=== PATIENT | male | born 1970 | race Caucasian/White ===

== ENCOUNTER 2018-12-05 10:52 | Outpatient (CLI) ==
--- NOTE | 2018-12-05 12:32 | US ---
EXAM: ULTRASOUND LOWER EXTREMITY VENOUS DOPPLER EXAM HISTORY: Swelling and pain. FINDINGS: Bilateral lower extremity venous Doppler exam. Real time rose-scale, Doppler spectral june lysis and color-flow Doppler imaging performed. The veins targeted for evaluation include the common femoral, greater saphenous, profundus, femoral, popliteal, peroneal, anterior tibial and posterior t ibial. The evaluated veins demonstrated normal spontaneous flow and compression without evidence o f thrombosis. IMPRESSION: No venous thrombosis identified within the areas evaluated.
== END 2018-12-05 10:53 | disposition home or self-care (01) ==
LOC: RAD 10:52
PROVIDERS: ATTEND Family Medicine
DX: M79.605 Pain in left leg (principal); M79.604 Pain in right leg; M79.89 Other specified soft tissue disorders

== ENCOUNTER 2020-01-03 04:09 | Inpatient (IN) ==
[2020-01-03] MEDS ORDERED: SODIUM CHLORIDE 1,000 ML IV STA (04:52)
[2020-01-03] MEDS ORDERED: ZOFRAN 4 MG/2 ML IVP STA (04:52)
[2020-01-03] MEDS ORDERED: NEXIUM IV IVP STA (04:53)
--- NOTE | 2020-01-03 05:00 | ED.PDOC ---
General ED Provider: Dr. MACO VALDES Chief Complaint: Nausea/Vomiting Stated Complaint: Patient is a 49 year old male who admits to drinking heaveyly the last two days. Has been vomiting for one day totaling about 10 times with a small amt of blood. Has a history of Alcoholism and would like to go back to rehabiliation. Time Seen by Physician: 04:30 Mode of Arrival: Walk-In Information Source: Patient Nursing and Triage Documentation Reviewed and Agree: Yes Does patient meet sepsis criteria?: No System Inflammatory Response Syndrome: Not Applicable Sepsis Protocol: For patient's 13 years and over: Temp is 96.8 and below OR 101 and greater Pulse >90 BPM Resp >20/minute Acutely Altered Mental Status Are patient's symptoms suggestive of a new infection, such as: -Pneumonia -Skin, Soft Tissue -Endocarditis -UTI -Bone, Joint Infection -Implantable Device -Acute Abdominal Infection -Wound Infection -Meningitis -Blood Stream Catheter Infection -Unknown GI Complaint Exam Vomiting/Diarrhea Complaint/Exam Onset/Duration: 24 hours Symptoms Are: Still present Episodes of Vomiting over last 24 Hours: 10 Initial Severity: Moderate Current Severity: Severe Character of Vomiting: Reports Non-bilious and Bloody (v small ) Aggravating: Reports Liquids Alleviating: Reports None Associated Signs and Symptoms: Reports Light-headedness, Abdominal pain and Cramping Related History: Reports Similar episode Non-GI Risk Factors: Denies Vomiting due to neuro and Vomiting due to cardiac Surgical Obstruction Risk Factors: Reports None Related Surgical History: Reports None Abdominal Findings: Present None Kussmaul Respirations Present: No Differential Diagnoses: Gastritis, Hepatitis and Pancreatitis Review of Systems Review Of Systems Constitutional: Reports No symptoms Eyes: Reports No symptoms Ears, Nose, Mouth, Throat: Reports No symptoms Respiratory: Reports No symptoms Cardiac: Reports No symptoms GI: Reports Nausea, Vomiting and Other (blood streaked stool. ) : Reports No symptoms Musculoskeletal: Reports No symptoms Skin: Reports No symptoms Neurological: Reports No symptoms Endocrine: Reports No symptoms Hematologic/Lymphatic: Reports No symptoms All Other Systems: Reviewed and Negative [facility] Social History Smoking and tobacco status: Current every day smoker Substance use type: does not use Physical Exam Physical Exam Appearance: Reports Ill-appearing Ill-appearing: Mild Pain Distress: Mild Neck: Supple Respiratory: Reports Airway patent and Breath sounds clear Cardiovascular: Reports RRR, Pulses normal and No rub Neurological: Reports Motor intact, Cranial nerves intact, Alert and Oriented Psychiatric: Reports Anxious Critical Care Note Critical Care Note Total Time (mins): 30 Course Course Orders, Labs, Meds: Orders Category Date Time Status ED IV/MEDIPORT/POWERPORT .ONCE EMERGENCY 01/03/20 04:52 Ordered AMYLASE Stat LAB 01/03/20 04:52 Ordered CBC W/ AUTO DIFF Stat LAB 01/03/20 04:52 Ordered COMPREHENSIVE METABOLIC PANEL Stat LAB 01/03/20 04:52 Ordered LIPASE Stat LAB 01/03/20 04:52 Ordered URINALYSIS C & S IF INDICATED Stat LAB 01/03/20 04:52 Uncollected 0.9 % Sodium Chloride [Saline Flush] MEDS 01/03/20 04:52 Ordered 1 syr IVF PRN PRN Esomeprazole Sodium [Nexium IV] MEDS 01/03/20 04:53 Stat 40 mg IVP ONCE STA Ondansetron HCl/Pf [Zofran 4 mg/2 ml] MEDS 01/03/20 04:52 Stat 4 mg IVP ONCE STA SODIUM CHLORIDE 0.9% @ 1,000 MLS/HR(1,000ml) MEDS 01/03/20 04:52 Ordered Sodium Chloride 0.9% [Sodium Chloride] 1,000 ml IV BOLUS Medications Generic Name Dose Route Start Last Admin Trade Name Freq PRN Reason Stop Dose Admin Sodium Chloride 1,000 mls @ 1,000 mls/hr 01/03/20 04:52 Sodium Chloride IV 01/03/20 05:51 BOLUS STA Sodium Chloride 1 syr 01/03/20 04:52 01/03/20 04:56 Saline Flush IVF 1 syr PRN PRN Administration To flush IV Discontinued Medications Generic Name Dose Route Start Last Admin Trade Name Freq PRN Reason Stop Dose Admin Esomeprazole Magnesium 40 mg 01/03/20 04:53 Nexium Iv IVP 01/03/20 04:54 ONCE STA Ondansetron HCl 4 mg 01/03/20 04:52 Zofran 4 Mg/2 Ml IVP 01/03/20 04:53 ONCE STA Vital Signs: Temp Pulse Resp BP Pulse Ox 01/03/20 04:10 98.1 F 70 20 155/104 H 97 Discharge Plan Discharge Patient Disposition: HOME SELF-CARE Discharge Problem: Acute alcoholic gastritis, Nausea, Vomiting, Alcohol abuse Instructions: Gastritis (DC), Abuse of Alcohol (ED) Prescriptions: New pantoprazole 40 mg tablet,delayed release (DR/EC) 40 mg PO DAILY Qty: 30 RF: 0 No Action ondansetron HCl [ondansetron HCl] 4 MG tablet 4 mg PO Q8H PRN (Reason: Nausea / Vomiting) Qty: 14 RF: 0 quetiapine [Seroquel] 100 mg Tablet 100 mg PO BEDTIME RF: 0 lisinopril 40 mg Tablet 40 mg PO DAILY RF: 0 Activity Restrictions/Additional Instructions: Follow-up with your PCP in 3-5 days. Take medications as prescribed. Return if worse or concerned. ED Provider: MACO VALDES Condition: Fair
[2020-01-03] MEDS ORDERED: LIBRIUM PO STA (05:07)
[2020-01-03 05:10] LABS: HEMATOCRIT 46.7 % (42.0-52.0)
[2020-01-03] MEDS ORDERED: INFUVITE ADULT 10 ML in SODIUM CHLORIDE 0.9%-KCL 20 MEQ 1,000 ML IV STA (05:10)
[2020-01-03] MEDS ORDERED: LIBRIUM ONE (05:29)
[2020-01-03] MEDS ORDERED: INFUVITE ADULT IV ONE (05:40)
[2020-01-03] MEDS ORDERED: THIAMINE ONE (05:53)
[2020-01-03] MEDS: THIAMINE 100 MG in SODIUM CHLORIDE 50 ML IV SCH ×2 (05:57→09:38)
--- NOTE | 2020-01-03 08:27 | CT ---
Exam: CT of the abdomen pelvis with intravenous contrast. Comparison: 10/31/2019. Reason for exam: Vomiting. FINDINGS: 2.2 x 1.1 cm nodular consolidation in the right lower lobe on axial image number 14. The liver is lower in attenuation in the spleen on the contrasted study. The spleen, adrenal glands, gallbladder, and pancreas appear grossly unremarkable. No hydronephrosis, hydroureter or nephrolithiasis in either kidney. No evidence of obstruction. There is thickening of the small bowel brown without surrounding inflamm atory change. The appendix is unremarkable. No intra-abdominal free air or pelvic free fluid. Bladder appears grossly unremarkable. Diverticular disease without surrounding inflammatory change. Degenerative disease in the lumbosacral spine. Impression: 1. No acute inflammatory findings in the abdomen or pelvis. 2. Thickening of the small bowel wall may be physiologic but likely represents enteritis. 2. Nodular consolidation in the right lower lobe measuring 2.2 x 1.1 cm. This finding can be seen w ith atelectasis, pneumonia, and primary neoplasia. Further evaluation is recommended with CT imaging of the chest. 3. Diverticulosis without diverticulitis. Appendix is unremarkable
[2020-01-03] MEDS ORDERED: LEVAQUIN 500 MG/100 ML D5W 500 MG/100 ML BAG IV STA (08:31)
--- NOTE | 2020-01-03 08:45 | ED.PDOC ---
General ED Provider: Dr. MAGO WALKER MD Chief Complaint: Nausea/Vomiting Stated Complaint: pt care assumed from Dr Adler, pt NV and coughing at presentation, hx alcohol, appeared to be withdrawing and was treated w/ banana bag and Zofran and Librium. pt is improved Time Seen by Physician: 08:40 Mode of Arrival: Walk-In Information Source: Patient Nursing and Triage Documentation Reviewed and Agree: Yes Does patient meet sepsis criteria?: No System Inflammatory Response Syndrome: Not Applicable Sepsis Protocol: For patient's 13 years and over: Temp is 96.8 and below OR 101 and greater Pulse >90 BPM Resp >20/minute Acutely Altered Mental Status Are patient's symptoms suggestive of a new infection, such as: -Pneumonia -Skin, Soft Tissue -Endocarditis -UTI -Bone, Joint Infection -Implantable Device -Acute Abdominal Infection -Wound Infection -Meningitis -Blood Stream Catheter Infection -Unknown GI Complaint Exam Vomiting/Diarrhea Complaint/Exam Symptoms Are: Resolved Current Severity: None Review of Systems Review Of Systems Constitutional: Denies Fever Respiratory: Reports Cough Cardiac: Denies Chest pain GI: Reports Abdominal pain and Vomiting All Other Systems: Other [facility] Medical History (Updated 01/03/20 @ 13:48 by SHARMILA BACK) Cannabis dependence, daily use (Chronic) Diverticulosis (Acute) Environmental and seasonal allergies (Acute) Hypertension (Acute) Insomnia (Chronic) Right arm fracture (Acute) Tobacco dependence (Chronic) Family History (Updated 01/03/20 @ 10:42 by SHARMILA BACK) Mother No problems noted. FATHER Hypertension Lupus SISTER No problems noted. BROTHER No problems noted. Social History (Updated 01/03/20 @ 10:06 by MICKY MONTAGUE RN) Smoking and tobacco status: Current every day smoker Tobacco: How many years used: 30 Substance use type: does not use Physical Exam Physical Exam Appearance: Reports Well-appearing Ill-appearing: None Pain Distress: None Eyes: Reports Conjunctiva clear ENT: Reports Oropharynx normal Respiratory: Reports Airway patent Cardiovascular: Reports RRR GI/: Reports Soft and Tender (no rebound) Skin: Reports Warm and Dry Psychiatric: Reports Affect appropriate Interpretation Radiology Interpretation Radiology Interpretation By: Radiologist Exam Interpreted: CT Scan (no obstruction, +rll infil, +enteritis) Re-Evaluation Re-Evaluation Time of Re-Evaluation: 08:43 Status: Improved Vital Signs Stable: Yes Appearance: NAD Lungs: Clear Skin: Warm and Dry Neuro: Alert and Oriented X3 CV: RRR Additional Comments: admit d/w Erika for right lung infil, withdrawal reaction, enteritis, vomiting Critical Care Note Critical Care Note Total Time (mins): 0 Course Course Hematology/Chemistry: 01/03/20 05:05 01/03/20 05:05 Orders, Labs, Meds: Lab Review 01/03/20 01/03/20 01/03/20 05:05 05:05 08:00 WBC 20.39 H RBC 4.54 L Hgb 16.4 Hct 46.7 MCV 102.9 H MCH 36.1 H MCHC 35.1 RDW Coeff of Pete 18.6 H Plt Count 297 Immature Gran % (Auto) 0.4 Neut % (Auto) 91.0 H Lymph % (Auto) 3.8 L [place] % (Auto) 4.6 Eos % (Auto) 0.0 Baso % (Auto) 0.2 Immature Gran # (Auto) 0.1 Neut # (Auto) 18.6 H Lymph # (Auto) 0.8 Swift # (Auto) 0.9 Eos # (Auto) 0.0 Baso # (Auto) 0.0 Sodium 137.4 Potassium 3.58 Chloride 95.6 L Carbon Dioxide 31.5 H Anion Gap 13.88 BUN 18.1 Creatinine 1.04 Estimated GFR (MDRD) 77.00 BUN/Creatinine Ratio 17.40 Glucose 138.2 H Calcium 9.28 Total Bilirubin 2.37 H AST 37.3 ALT 38.2 Alkaline Phosphatase 135.2 H Total Protein 6.87 Albumin 3.90 Globulin 2.97 Albumin/Globulin Ratio 1.31 Amylase 77.2 Lipase 52.2 Urine Color [place] Urine Clarity Clear Urine pH >=9.0 Ur Specific [place] 1.010 Urine Protein 2+ H Urine Glucose (UA) Negative Urine Ketones Negative Urine Blood Negative Urine Nitrite Positive H Urine Bilirubin 1+ H Urine Urobilinogen 1.0 H Ur Leukocyte Esterase Negative Urine Microscopic RBC 0-2 Urine Microscopic WBC 2-5 Ur Squamous Epith Cells 0-2 Urine Bacteria Trace Urine Mucus 2+ Plasma/Serum Alcohol < 10.0 Influ A Molecular Assay Influ B Molecular Assay 01/03/20 10:15 WBC RBC Hgb Hct MCV MCH MCHC RDW Coeff of Pete Plt Count Immature Gran % (Auto) Neut % (Auto) Lymph % (Auto) Swift % (Auto) Eos % (Auto) Baso % (Auto) Immature Gran # (Auto) Neut # (Auto) Lymph # (Auto) Swift # (Auto) Eos # (Auto) Baso # (Auto) Sodium Potassium Chloride Carbon Dioxide Anion Gap BUN Creatinine Estimated GFR (MDRD) BUN/Creatinine Ratio Glucose Calcium Total Bilirubin AST ALT Alkaline Phosphatase Total Protein Albumin Globulin Albumin/Globulin Ratio Amylase Lipase Urine Color Urine Clarity Urine pH Ur Specific [place] Urine Protein Urine Glucose (UA) Urine Ketones Urine Blood Urine Nitrite Urine Bilirubin Urine Urobilinogen Ur Leukocyte Esterase Urine Microscopic RBC Urine Microscopic WBC Ur Squamous Epith Cells Urine Bacteria Urine Mucus Plasma/Serum Alcohol Influ A Molecular Assay Negative by naat Influ B Molecular Assay Negative by naat Orders Category Date Time Status ACTIVITY TID CARE 01/03/20 11:36 Active NPO REMINDER: IMAGING ONCE CARE 01/03/20 07:07 Completed TELEMETRY MONITORING TELE CARE 01/03/20 08:52 Active VTE PREVENTION .SCD 24 Hours CARE 01/03/20 12:09 Active VTE PREVENTION .EZRA On AM/Off PM CARE 01/03/20 12:16 Active CLEAR LIQUID DIET DIETARY 01/03/20 Lunch Ordered ED IV/MEDIPORT/POWERPORT .ONCE EMERGENCY 01/03/20 04:52 Active AMYLASE Stat LAB 01/03/20 05:05 Completed BLOOD ALCOHOL Stat LAB 01/03/20 05:05 Completed BLOOD CULTURE Stat LAB 01/03/20 09:00 Received CBC W/ AUTO DIFF Stat LAB 01/03/20 05:05 Completed COMPREHENSIVE METABOLIC PANEL Stat LAB 01/03/20 05:05 Completed FLU A & B MOLECULAR [FLU A/B MOLECULAR] Stat LAB 01/03/20 10:15 Completed LIPASE Stat LAB 01/03/20 05:05 Completed MOLECULAR GROUP A STREP Stat LAB 01/03/20 10:15 Completed URINALYSIS C & S IF INDICATED Stat LAB 01/03/20 08:00 Completed 0.9 % Sodium Chloride [Saline Flush] MEDS 01/03/20 04:52 Active 1 syr IVF PRN PRN Azithromycin Inj [Zithromax] 500 mg MEDS 01/03/20 09:30 Active 0.9 % Sodium Chloride [Sodium Chloride] 250 ml IV DAILY Ceftriaxone/D5w 1 gm Premix [Rocephin 1 gm/50 ml D5w] MEDS 01/03/20 09:30 Active 1 gm in 50 ml IV DAILY Chlordiazepoxide HCl [Librium] MEDS 01/03/20 05:29 Discontinued 50 mg .ROUTE .STK-MED ONE Chlordiazepoxide HCl [Librium] MEDS 01/03/20 05:07 Discontinued 50 mg PO ONCE STA Esomeprazole Sodium [Nexium IV] MEDS 01/03/20 04:53 Discontinued 40 mg IVP ONCE STA Folic Acid 1 mg MEDS 01/03/20 09:00 Discontinued 0.9 % Sodium Chloride [Sodium Chloride] 50 ml IV DAILY Lisinopril [Zestril] MEDS 01/03/20 09:00 Active 40 mg PO DAILY Mvi, Adult No.1 with Vit K [Infuvite Adult] MEDS 01/03/20 05:40 Discontinued 10 ml IV .STK-MED ONE Ondansetron HCl/Pf [Zofran 4 mg/2 ml] MEDS 01/03/20 04:52 Discontinued 4 mg IVP ONCE STA Potassium Chloride in 0.9%NaCl [Sodium Chloride 0.9%- MEDS 01/03/20 05:10 Discontinued KCl 20 Meq] 1,000 ml Mvi, Adult No.1 with Vit K [Infuvite Adult] 10 ml IV 125 mls/hr Sodium Chloride 0.9% [Sodium Chloride] 1,000 ml MEDS 01/03/20 04:52 Discontinued IV BOLUS Sodium Chloride 0.9% [Sodium Chloride] 1,000 ml MEDS 01/03/20 12:00 Discontinued IV Q0H Vitamin B-1 Inj [Thiamine] MEDS 01/03/20 05:53 Discontinued 200 mg .ROUTE .STK-MED ONE Vitamin B-1 Inj [Thiamine] 100 mg MEDS 01/03/20 09:00 Discontinued 0.9 % Sodium Chloride [Sodium Chloride] 50 ml IV DAILY RESUSCITATION STATUS Routine OTHERS 01/03/20 09:55 Ordered CHEST, 2 VIEWS PA & LAT Stat RADS 01/03/20 08:[address] ABDOMEN/PELVIS W CONTRAST Stat RADS 01/03/20 07:07 Completed Medications Generic Name Dose Route Start Last Admin Trade Name Freq PRN Reason Stop Dose Admin Acetaminophen 650 mg 01/03/20 13:08 Tylenol RC Q6H PRN fever Albuterol Sulfate 2.5 mg 01/03/20 13:08 01/03/20 15:10 Albuterol 0.083% Neb NEB 2.5 mg RTQ6H PRN Administration Cough Folic Acid 1 mg 01/04/20 09:00 Folic Acid PO DAILY AUNG CEFTRIAXONE/D5W 1 GM PREMIX 1 gm in 50 mls @ 75 mls/hr 01/03/20 09:30 01/03/20 09:16 Rocephin 1 Gm/50 Ml D5w IV 01/06/20 09:29 75 mls/hr DAILY AUNG Administration Azithromycin 500 mg/ Sodium 250 mls @ 125 mls/hr 01/03/20 09:30 01/03/20 10:38 Chloride IV 01/05/20 09:30 125 mls/hr DAILY AUNG Administration Esomeprazole Magnesium 40 mg/ 50 mls @ 100 mls/hr 01/04/20 09:00 Sodium Chloride IV DAILY AUNG Sodium Chloride 1,000 mls @ 83 mls/hr 01/03/20 13:30 01/03/20 13:32 Sodium Chloride IV 83 mls/hr .Q12H3M AUNG Administration Ipratropium [place] 2.5 ml 01/03/20 18:00 Atrovent 0.02% Neb NEB RTQ6H AUNG Lisinopril 40 mg 01/03/20 09:00 01/03/20 09:59 Zestril PO 40 mg DAILY AUNG Administration Lorazepam 1 mg 01/03/20 13:05 Ativan IVP Q2H PRN Alcohol Withdrawal or seizures Multivitamins 1 tab 01/04/20 09:00 Multivitamin Tablet PO DAILY AUNG Nicotine 1 patch 01/03/20 13:30 01/03/20 14:42 Nicoderm 21 Mg TD 1 patch DAILY AUNG Administration Quetiapine Fumarate 100 mg 01/03/20 21:00 Seroquel PO BEDTIME AUNG Sodium Chloride 1 syr 01/03/20 04:52 01/03/20 04:56 Saline Flush IVF 1 syr PRN PRN Administration To flush IV Thiamine HCl 100 mg 01/04/20 09:00 Thiamine PO DAILY AUNG Discontinued Medications Generic Name Dose Route Start Last Admin Trade Name Freq PRN Reason Stop Dose Admin Chlordiazepoxide HCl 50 mg 01/03/20 05:07 01/03/20 05:37 Librium PO 01/03/20 05:08 Not Given ONCE STA Esomeprazole Magnesium 40 mg 01/03/20 04:53 01/03/20 05:03 Nexium Iv IVP 01/03/20 04:54 40 mg ONCE STA Administration Sodium Chloride 1,000 mls @ 1,000 mls/hr 01/03/20 04:52 01/03/20 04:50 Sodium Chloride IV 01/03/20 05:51 1,000 mls/hr BOLUS STA Administration Multivitamins/Minerals 10 ml/ 1,010 mls @ 125 mls/hr 01/03/20 05:10 01/03/20 05:47 Potassium Chloride/Sodium IV 01/03/20 13:14 125 mls/hr Chloride .Q8H5M STA Administration Thiamine HCl 100 mg/ Sodium 51 mls @ 100 mls/hr 01/03/20 09:00 01/03/20 09:38 Chloride IV Not Given DAILY AUNG Folic Acid 1 mg/ Sodium 50.2 mls @ 100 mls/hr 01/03/20 09:00 01/03/20 08:25 Chloride IV 100 mls/hr DAILY AUNG Administration Sodium Chloride 1,000 mls @ 1,000 mls/hr 01/03/20 12:00 01/03/20 16:48 Sodium Chloride IV Not Given Q0H AUNG Ondansetron HCl 4 mg 01/03/20 04:52 01/03/20 05:01 Zofran 4 Mg/2 Ml IVP 01/03/20 04:53 4 mg ONCE STA Administration Vital Signs: Temp Pulse Resp BP Pulse Ox 01/03/20 10:10 98.1 F 77 20 153/96 H 96 01/03/20 09:44 98.1 F 77 20 96 01/03/20 08:34 98.8 F 73 18 153/96 H 93 L 01/03/20 04:10 98.1 F 70 20 155/104 H 97 Discharge Plan Discharge Patient Disposition: PLACED OBSERVATION Discharge Problem: Nausea, Vomiting, Alcohol abuse Acute alcoholic gastritis Qualifiers: Gastritis bleeding: presence of bleeding unspecified Qualified Code(s): K29.20 - Alcoholic gastritis without bleeding Instructions: Gastritis (DC), Abuse of Alcohol (ED) Additional Instructions: Follow-up with your PCP in 3-5 days. Take medications as prescribed. Return if worse or concerned. ED Provider: MAGO WALKER Condition: Stable Discharge Date/Time: 01/03/20 09:32
[2020-01-03] MEDS ORDERED: FOLIC ACID 1 MG in SODIUM CHLORIDE 50 ML IV SCH (09:00)
[2020-01-03] MEDS ORDERED: FOLIC ACID IV SCH (09:00)
--- NOTE | 2020-01-03 09:03 | DI ---
Exam: Two views of the chest. Comparison: 10/31/2019. Reason for exam: Cough. FINDINGS: No pneumothorax, pleural effusion, or focal consolidation. The cardiac silhouette is not enlarged. Imaged osseous structures appear grossly unremarkable without acute fracture. Impression: No acute cardiopulmonary process.
[2020-01-03] MEDS ORDERED: ROCEPHIN 1 GM/50 ML D5W 1 GM/50 ML BAG IV SCH (09:30)
[2020-01-03] MEDS ORDERED: ZITHROMAX 500 MG in SODIUM CHLORIDE 250 ML IV SCH (09:30)
[2020-01-03 09:55] VITALS: BMI 27.0
[2020-01-03] MEDS: ZESTRIL PO SCH (09:59)
--- NOTE | 2020-01-03 10:10 | PCM ---
Chief Complaint Chief Complaint: "nausea and vomiting" History of Present Illness History of Present Illness: Devante Chung is a 49yo male w/ active hx of ETOH Abuse, Daily MJ Use (1jt/d), Tobacco Abuse ([id number]), Essential HTN, Chronic Insomnia, and Seasonal & Environmental Allergies who presented to [facility] ER 01/03/2020 04:09 w/ onset last 2 days of worsening nausea and vomiting consisting of 10 episodes of food to bilious emesis. There was as sociated sharp moderate to severe generalized abdominal pain that was relieved w/ vomiting, altering periods of chills and diaphoretic chills, generalized weakness, fatigue, loss of appetite, and inability to keep food, and liquids or pills down. He has also noted recliner orthopnea w/ his usual nasal congestion and rhinitis, and clear to white sputum production w/ intermittent cough. Denies any known ill contacts. See ROS. Only treatment at home was rest and PO Zofran, which he thinks he kept down. Notes he hasn't had any liquor for 2 or more days. In the ER his abnormal labs were: CBC w/ WBC 20.39, RBC 4.54L, MCV 102.9H, MCH 36.1H, RDW 18.6H, Neut% 91.0H, Lymph% 3.8L, and Neut# 18.6H; CMP w/ Tot. Bili 2.37H, Alk Phos 135.2H, , and Urinalysis Protein 2+, Nitrates +, Urine Bili 1+, and Uribilinogen 1.0H (all urine findings are improved from last testing 12/21/2019). Serum Amylase and Lipase were normal at 77.2 and 52.2 respectively. ETOH was <10.0. Chest x-ray indicated no acute cardiopulmonary findings. However, CT of Abdomen and Pelvis w/ contrast revealed incidental findings of Diverticulosis w/o diverticulitis; no acute inflammatory findings in the abdomen or pelvis; appendix appears normal; thickening of the small bowel wall that may be physiologic but likely represents enteritis; and nodular consolidation in the right lower lobe measuring 2.2 x 1.1 cm. This finding can be seen with atelectasis, pneumonia, and primary neoplasia. Further evaluation is recommended with CT imaging of the chest. Patient was then admitted as inpatient for Acute Alcoholic Gastritis w/ Enteritis and Pneumonia; full code status was discussed and verified again. Upon admission, the patient was found to have significant cough w/ RLL coarse breath sounds w/ further work-up for CT of Chest, antibiotics, nebs and observation. Review of Systems Constitutional: Reports fever (unknown; did not check at home. ), chills, weakness (Generalized w/ no food, drink, or sleep for last 2 days. ), sweats, fatigue and loss of appetite Eyes: Denies blurred vision, double-vision, discharge, itching, pain, redness and photophobia Ears: Denies pain, bleeding, drainage, ringing and hearing loss Nose: Reports congestion (chronic w/ environmental allergies since childhood.) and discharge (clear; sneezing); Denies bleeding Throat: Reports pain ("razor sharp" with swallowing ), swelling and voice change (mild hoarseness ) Mouth: Denies bleeding, pain and swelling Respiratory: Reports cough (chronic cough; PNA 10/29/2019 tx in [facility] ER ) and wheeze (slight wheezing); Denies shortness of air, hemoptysis and pain with breathing Cardiovascular: Reports orthopnea (recliner orthopnea X 2 days); Denies chest pain, left arm pain, diaphoresis, PND, edema, palpitations and syncope Gastrointestinal: Reports abdominal pain (Intermittent generalized abdominal pain relieved after done vomiting.), nausea, vomiting and constipation (Last BM 01/01/2020); Denies diarrhea, melena, hematemesis, hematochezia, dysphagia and other Genitourinary: Reports dysuria; Denies hematuria, frequency, incontinence, flank pain, penile discharge, testicular pain and testicular swelling Neurological: Reports dizziness (slight ) and weakness; Denies headache, seizure, numbness, speech difficulty, problems with walking, tremor and fainting Musculoskeletal: Denies pain and swelling in joints Skin: Denies rash, pruritus, lacerations, wounds and bruising Hematology: Denies easy bruising, easy bleeding and swollen glands Endocrine: Reports excessive thirst; Denies weight changes, cold intolerance, heat intolerance, excessive hunger and polyuria Psychiatric: Reports depression (mild), anxiety (a few times a week. ) and sleeplessness; Denies hopelessness, suicidal and hallucinations Habits: Reports tobacco use (1 PPD X 24yrs), substance use (Smokes MJ daily) and alcohol use (10 shots of Sean's Hard Lemonades/day; 23 yrs; Not been to AA for years; Tried rehab X2 but insurance would only pay for 3 days each time. Last rehab 8 yrs ago. ) Allergies Allergies Allergy/AdvReac Type Severity Reaction Status Date / Time No Known Allergies Allergy Verified 12/21/19 05:10 [facility] Medical History (Updated 01/03/20 @ 13:48 by SHARMILA BACK) Cannabis dependence, daily use (Chronic) Diverticulosis (Acute) Environmental and seasonal allergies (Acute) Hypertension (Acute) Insomnia (Chronic) Right arm fracture (Acute) Tobacco dependence (Chronic) Surgical History (Updated 01/03/20 @ 10:40 by SHARMILA BACK) S/P ORIF (open reduction internal fixation) fracture (Acute) Family History (Updated 01/03/20 @ 10:42 by SHARMILA BACK) Mother No problems noted. FATHER Hypertension Lupus SISTER No problems noted. BROTHER No problems noted. Social History (Updated 01/03/20 @ 10:06 by MICKY MONTAGUE RN) Smoking and tobacco status: Current every day smoker Tobacco: How many years used: 30 Substance use type: does not use Medications Medications: Medications Generic Name Dose Route Start Last Admin Trade Name Freq PRN Reason Stop Dose Admin Multivitamins/Minerals 10 ml/ 1,010 mls @ 125 mls/hr 01/03/20 05:10 01/03/20 05:47 Potassium Chloride/Sodium IV 01/03/20 13:14 125 mls/hr Chloride .Q8H5M STA Administration Thiamine HCl 100 mg/ Sodium 51 mls @ 100 mls/hr 01/03/20 09:00 01/03/20 09:38 Chloride IV Not Given DAILY AUNG Folic Acid 1 mg/ Sodium 50.2 mls @ 100 mls/hr 01/03/20 09:00 01/03/20 08:25 Chloride IV 100 mls/hr DAILY AUNG Administration CEFTRIAXONE/D5W 1 GM PREMIX 1 gm in 50 mls @ 75 mls/hr 01/03/20 09:30 01/03/20 09:16 Rocephin 1 Gm/50 Ml D5w IV 01/06/20 09:29 75 mls/hr DAILY AUNG Administration Azithromycin 500 mg/ Sodium 250 mls @ 125 mls/hr 01/03/20 09:30 Chloride IV 01/05/20 09:30 DAILY AUNG Lisinopril 40 mg 01/03/20 09:00 01/03/20 09:59 Zestril PO 40 mg DAILY AUNG Administration Sodium Chloride 1 syr 01/03/20 04:52 01/03/20 04:56 Saline Flush IVF 1 syr PRN PRN Administration To flush IV Body Composition Height: 5 ft 3 in Weight: 152 lb 8.958 oz Body Mass Index (BMI): 27.0 Vital Signs Temperature: 98.1 F Pulse Rate: 77 Respiratory Rate: 20 Blood Pressure: 153/96 O2 Sat by Pulse Oximetry: 96 Physical Examination Appearance: Reports Ill-appearing and Well-nourished Ill-appearing: Moderate Pain Distress: Moderate Eyes: Reports JM, EOMI and Conjunctiva clear ENT: Reports Ears normal, Rhinorrhea and Erythema; Denies Nose normal, Oropharynx normal, TMs Occluded, Epistaxis, Exudate and Dry mucosa Neck: Supple Respiratory: Reports Airway patent, Breath sounds equal, Respirations nonlabored and Rhonchi (Right mid and lower lobes. Tight TMD TEACHER cough on exam.); Denies Crackles, Wheezes and Retractions Cardiovascular: Reports RRR (S1, S2. NSR rate 80's on telemetry. ), Pulses normal, No rub and No murmur (Carotids w/o bruits or abnormal sounds. ) GI/: Reports Soft, No masses, Bowel sounds normal, No Organomegaly and Tender (Mild generalized tenderness w/o rebound or guarding. ) Musculoskeletal: Reports Normal strength, ROM intact, No edema and No calf tenderness Skin: Reports Warm and Dry; Denies Normal color (cheeks are flushed.), Diaphoretic and Cyanotic Neurological: Reports Sensation intact, Motor intact, Reflexes intact (Rhomberg negative.), Cranial nerves intact, Alert and Oriented (X4.) Psychiatric: Reports Affect appropriate and Mood appropriate; Denies Anxious and Depressed Lab/Tests/Diagnostic Imaging Lab/Tests/Diagnostic Imaging: Lab Review 01/03/20 01/03/20 01/03/20 05:05 05:05 08:00 WBC 20.39 H RBC 4.54 L Hgb 16.4 Hct 46.7 MCV 102.9 H MCH 36.1 H MCHC 35.1 RDW Coeff of Pete 18.6 H Plt Count 297 Immature Gran % (Auto) 0.4 Neut % (Auto) 91.0 H Lymph % (Auto) 3.8 L [place] % (Auto) 4.6 Eos % (Auto) 0.0 Baso % (Auto) 0.2 Immature Gran # (Auto) 0.1 Neut # (Auto) 18.6 H Lymph # (Auto) 0.8 [place] # (Auto) 0.9 Eos # (Auto) 0.0 Baso # (Auto) 0.0 Sodium 137.4 Potassium 3.58 Chloride 95.6 L Carbon Dioxide 31.5 H Anion Gap 13.88 BUN 18.1 Creatinine 1.04 Estimated GFR (MDRD) 77.00 BUN/Creatinine Ratio 17.40 Glucose 138.2 H Calcium 9.28 Total Bilirubin 2.37 H AST 37.3 ALT 38.2 Alkaline Phosphatase 135.2 H Total Protein 6.87 Albumin 3.90 Globulin 2.97 Albumin/Globulin Ratio 1.31 Amylase 77.2 Lipase 52.2 Urine Color [place] Urine Clarity Clear Urine pH >=9.0 Ur Specific [place] 1.010 Urine Protein 2+ H Urine Glucose (UA) Negative Urine Ketones Negative Urine Blood Negative Urine Nitrite Positive H Urine Bilirubin 1+ H Urine Urobilinogen 1.0 H Ur Leukocyte Esterase Negative Urine Microscopic RBC 0-2 Urine Microscopic WBC 2-5 Ur Squamous Epith Cells 0-2 Urine Bacteria Trace Urine Mucus 2+ Plasma/Serum Alcohol < 10.0 01/03/2020 CXR Impression: No acute cardiopulmonary processes. 01/03/2020 Exam: CT of the abdomen pelvis with intravenous contrast. Comparison: 10/31/2019. Reason for exam: Vomiting. FINDINGS: 2.2 x 1.1 cm nodular consolidation in the right lower lobe on axial image number 14. The liver is lower in attenuation in the spleen on the contrasted study. The spleen, adrenal glands, gallbladder, and pancreas appear grossly unremarkable. No hydronephrosis, hydroureter or nephrolithiasis in either kidney. No evidence of obstruction. There is thickening of the small bowel brown without surrounding inflammatory change. The appendix is unremarkable. No intra-abdominal free air or pelvic free fluid. Bladder appears grossly unremarkable. Diverticular disease without surrounding inflammatory change. Degenerative disease in the lumbosacral spine. Impression: 1. No acute inflammatory findings in the abdomen or pelvis. 2. Thickening of the small bowel wall may be physiologic but likely represents enteritis. 2. Nodular consolidation in the right lower lobe measuring 2.2 x 1.1 cm. This finding can be seen with atelectasis, pneumonia, and primary neoplasia. Further evaluation is recommended with CT imaging of the chest. 3. Diverticulosis without diverticulitis. Appendix is unremarkable Orders Category Date Time Status ADMIT OBSERVATION [PLACE PATIENT OBSERVATION] .TO ADMISSION 01/03/20 08:51 Active MEDSURG (MONITORED BED) NPO REMINDER: IMAGING ONCE CARE 01/03/20 07:07 Completed TELEMETRY MONITORING TELE CARE 01/03/20 08:52 Active ED IV/MEDIPORT/POWERPORT .ONCE EMERGENCY 01/03/20 04:52 Active AMYLASE Stat LAB 01/03/20 05:05 Completed BLOOD ALCOHOL Stat LAB 01/03/20 05:05 Completed BLOOD CULTURE Stat LAB 01/03/20 09:00 Received CBC W/ AUTO DIFF Stat LAB 01/03/20 05:05 Completed COMPREHENSIVE METABOLIC PANEL Stat LAB 01/03/20 05:05 Completed LIPASE Stat LAB 01/03/20 05:05 Completed URINALYSIS C & S IF INDICATED Stat LAB 01/03/20 08:00 Completed 0.9 % Sodium Chloride [Saline Flush] MEDS 01/03/20 04:52 Active 1 syr IVF PRN PRN Azithromycin Inj [Zithromax] 500 mg MEDS 01/03/20 09:30 Active 0.9 % Sodium Chloride [Sodium Chloride] 250 ml IV DAILY Ceftriaxone/D5w 1 gm Premix [Rocephin 1 gm/50 ml D5w] MEDS 01/03/20 09:30 Active 1 gm in 50 ml IV DAILY Chlordiazepoxide HCl [Librium] MEDS 01/03/20 05:29 Discontinued 50 mg .ROUTE .STK-MED ONE Chlordiazepoxide HCl [Librium] MEDS 01/03/20 05:07 Discontinued 50 mg PO ONCE STA Esomeprazole Sodium [Nexium IV] MEDS 01/03/20 04:53 Discontinued 40 mg IVP ONCE STA Folic Acid 1 mg MEDS 01/03/20 09:00 Active 0.9 % Sodium Chloride [Sodium Chloride] 50 ml IV DAILY Lisinopril [Zestril] MEDS 01/03/20 09:00 Active 40 mg PO DAILY Mvi, Adult No.1 with Vit K [Infuvite Adult] MEDS 01/03/20 05:40 Discontinued 10 ml IV .STK-MED ONE Ondansetron HCl/Pf [Zofran 4 mg/2 ml] MEDS 01/03/20 04:52 Discontinued 4 mg IVP ONCE STA Potassium Chloride in 0.9%NaCl [Sodium Chloride 0.9%- MEDS 01/03/20 05:10 Active KCl 20 Meq] 1,000 ml Mvi, Adult No.1 with Vit K [Infuvite Adult] 10 ml IV 125 mls/hr Sodium Chloride 0.9% [Sodium Chloride] 1,000 ml MEDS 01/03/20 04:52 Discontinued IV BOLUS Vitamin B-1 Inj [Thiamine] MEDS 01/03/20 05:53 Discontinued 200 mg .ROUTE .STK-MED ONE Vitamin B-1 Inj [Thiamine] 100 mg MEDS 01/03/20 09:00 Active 0.9 % Sodium Chloride [Sodium Chloride] 50 ml IV DAILY RESUSCITATION STATUS Routine OTHERS 01/03/20 09:55 Ordered CHEST, 2 VIEWS PA & LAT Stat RADS 01/03/20 08:[address] ABDOMEN/PELVIS W CONTRAST Stat RADS 01/03/20 07:07 Completed Medications Generic Name Dose Route Start Last Admin Trade Name Freq PRN Reason Stop Dose Admin Multivitamins/Minerals 10 ml/ 1,010 mls @ 125 mls/hr 01/03/20 05:10 01/03/20 05:47 Potassium Chloride/Sodium IV 01/03/20 13:14 125 mls/hr Chloride .Q8H5M STA Administration Thiamine HCl 100 mg/ Sodium 51 mls @ 100 mls/hr 01/03/20 09:00 01/03/20 09:38 Chloride IV Not Given DAILY AUNG Folic Acid 1 mg/ Sodium 50.2 mls @ 100 mls/hr 01/03/20 09:00 01/03/20 08:25 Chloride IV 100 mls/hr DAILY AUNG Administration CEFTRIAXONE/D5W 1 GM PREMIX 1 gm in 50 mls @ 75 mls/hr 01/03/20 09:30 01/03/20 09:16 Rocephin 1 Gm/50 Ml D5w IV 01/06/20 09:29 75 mls/hr DAILY AUNG Administration Azithromycin 500 mg/ Sodium 250 mls @ 125 mls/hr 01/03/20 09:30 Chloride IV 01/05/20 09:30 DAILY AUNG Lisinopril 40 mg 01/03/20 09:00 01/03/20 09:59 Zestril PO 40 mg DAILY AUNG Administration Sodium Chloride 1 syr 01/03/20 04:52 01/03/20 04:56 Saline Flush IVF 1 syr PRN PRN Administration To flush IV Discontinued Medications Generic Name Dose Route Start Last Admin Trade Name Freq PRN Reason Stop Dose Admin Chlordiazepoxide HCl 50 mg 01/03/20 05:07 01/03/20 05:37 Librium PO 01/03/20 05:08 Not Given ONCE STA Esomeprazole Magnesium 40 mg 01/03/20 04:53 01/03/20 05:03 Nexium Iv IVP 01/03/20 04:54 40 mg ONCE STA Administration Sodium Chloride 1,000 mls @ 1,000 mls/hr 01/03/20 04:52 01/03/20 04:50 Sodium Chloride IV 01/03/20 05:51 1,000 mls/hr BOLUS STA Administration Ondansetron HCl 4 mg 01/03/20 04:52 01/03/20 05:01 Zofran 4 Mg/2 Ml IVP 01/03/20 04:53 4 mg ONCE STA Administration Assessment (1) Acute alcoholic gastritis: Status: Acute Code(s): K29.20 - Alcoholic gastritis without bleeding SNOMED Code(s): 3178724 Qualifiers: Gastritis bleeding: presence of bleeding unspecified Qualified Code(s): K29.20 - Alcoholic gastritis without bleeding (2) Enteritis: Status: Acute Code(s): K52.9 - Noninfective gastroenteritis and colitis, unspecified SNOMED Code(s): 39568211 (3) Pneumonia: Status: Acute Code(s): J18.9 - Pneumonia, unspecified organism SNOMED Code(s): 174361720 Qualifiers: Pneumonia type: due to unspecified organism Laterality: right Lung location: lower lobe of lung Qualified Code(s): J18.9 - Pneumonia, unspecified organism (4) Alcohol abuse: Status: Chronic Code(s): F10.10 - Alcohol abuse, uncomplicated SNOMED Code(s): 59006521 (5) Nausea & vomiting: Status: Acute Code(s): R11.2 - Nausea with vomiting, unspecified SNOMED Code(s): 84867794 Qualifiers: Vomiting type: bilious vomiting Qualified Code(s): R11.14 - Bilious vomiting (6) Hypertension: Status: Acute Code(s): I10 - Essential (primary) hypertension SNOMED Code(s): 46388653 Qualifiers: Hypertension type: essential hypertension Qualified Code(s): I10 - Essential (primary) hypertension (7) Tobacco dependence: Status: Chronic Code(s): F17.200 - Nicotine dependence, unspecified, uncomplicated SNOMED Code(s): 29743143 (8) Tobacco abuse counseling: Status: Acute Code(s): Z71.6 - Tobacco abuse counseling SNOMED Code(s): 899491420 (9) Insomnia: Status: Chronic Code(s): G47.00 - Insomnia, unspecified SNOMED Code(s): 715579207 Qualifiers: Insomnia type: unspecified Qualified Code(s): G47.00 - Insomnia, unspecified (10) Cannabis dependence, daily use: Status: Chronic Plan Plan: Acute Alcoholic Gastritis w/ Enteritis noted on CT & N/V --Probable worsening of already existent problem w/ his Alcoholism w/ new notation of Enteritis on CT scan. Treated w/Esomeprazole 40mg IV daily, Zofran 4mg IV prn N/V, IVF replacement, IV Thiamine, Banana Bag, & Folic Acid to be changed to PO in AM; Holding Flagyl at present to avoid ETOH reaction w/ previous daily ETOH use 2 days ago; VS Q4hrs & prn; Clear liquids avoiding red dyes and advance as tolerated if nausea subsiding; I&O; monitor labs and pt. status. PNA--New onset w/ WBC's 20+, signs of fever unmeasured at home, and abnormal finding RLL lung in AM CT Abdomen & Pelvis; will perform CT Lungs w/ contrast in AM as recommended (last IV contrast dye this AM 07:30); ATB's Azithormycin 500mg IV Q Day X3 and Ceftriaxone 1GM IV Q day X3 and switch to Cefdinir 300mg PO Q 12hrs X 7 days if adequately responding.; c/o's of severe ST w/ dry cough and nasal congestion & rhinorrhea---Strep test performed-negative and Influenza A&B obtained w/ negative findings; Ipratropium nebs AUNG Q6hrs w/ Albuterol 0.083mg Q 4 hrs prn cough/SOB ordered w/ Sputums for Gram stain and C&S; Tylenol prn fever; baseline ABG's w/ 24yr PPD hx; Draw blood cultures X2 different sites X1 for fever 101 degrees or >; IVF; [id number]; Monitor labs; Will likely need f-u consultation w/ Pulmonology and new PCP for f-u. Patient states he is no longer seeing his [facility] PCP because of job and insurance changes. Alcohol Abuse-- Possibly improved as patient is voicing that he wants to get back to a rehab program and stop his drinking; Ativan 1mg IV Q2 hrs prn alcohol withdrawal; Case Management to make arrangements for rehab possibilities for patient. Hypertension--Improved w/ medication. BP was elevated 150's/90's w/o BP meds 2 days w/ N/V. After restarting home med, BP slightly improved 140/90 likely influenced w/ IV 1L bolus. Monitor and adjust meds if needed. Heart healthy diet when regular diet resumed. Tobacco Dependence w/ Counseling--Not improved; Alert & oriented patient was counseled on smoking cessation (1PPD X 24yrs) for 14 minutes, agrees to nicotine patch at present, patient refuses stopping nicotine after d/c as wants to detox from alcohol first.; Emphasized the need to stop Tobacco and the volatile effects of ETOH & Tobacco abuse w/ new findings of RLL abnormality CT scan and other complications of Tobacco abuse. Chronic Insomnia--Worsening w/ last 2 days illness and inability to keep down medications; resume home medicine as soon as N/V controlled. Cannibis dependence, daily use--LT problem 1 Joint/day; discussed the side effects/complications of MJ including N/V Hyperemesis syndrome and insomnia. Recommend d/c MJ. Patient will consider.
[2020-01-03] MEDS: SODIUM CHLORIDE 1,000 ML IV SCH ×6 (12:38→16:48)
[2020-01-03] MEDS ORDERED: ATIVAN IVP PRN (13:05)
[2020-01-03] MEDS ORDERED: TYLENOL RC PRN (13:08)
[2020-01-03] MEDS ORDERED: ALBUTEROL 0.083% NEB NEB PRN (13:08)
[2020-01-03] MEDS ORDERED: SODIUM CHLORIDE 1,000 ML IV SCH (13:30)
[2020-01-03] MEDS: NICODERM 21 MG TD SCH (14:42)
[2020-01-03] MEDS: ATROVENT 0.02% NEB NEB SCH ×2 (16:56→23:30)
[2020-01-03] MEDS ORDERED: HYDROCHLOROTHIAZIDE PO STA (18:38)
[2020-01-03] MEDS ORDERED: SEROQUEL PO SCH (21:00)
[2020-01-04] MEDS: ATROVENT 0.02% NEB NEB SCH (04:50)
[2020-01-04 05:17] VITALS: BP 143/91; TEMP 98
[2020-01-04] MEDS: ZESTRIL PO SCH (08:58)
[2020-01-04] MEDS ORDERED: SODIUM CHLORIDE IV SCH (09:00)
[2020-01-04] MEDS ORDERED: MULTIVITAMIN TABLET PO SCH (09:00)
[2020-01-04] MEDS ORDERED: FOLIC ACID PO SCH (09:00)
[2020-01-04] MEDS ORDERED: THIAMINE PO SCH (09:00)
[2020-01-04] MEDS ORDERED: NEXIUM IV SCH (09:00)
[2020-01-04] MEDS: NICODERM 21 MG TD SCH (09:00)
--- NOTE | 2020-01-04 09:01 | CT ---
EXAM: CT of the chest with contrast History: Chest pain, right lower lobe nodule. Comparison: CT abdomen pelvis 01/03/2020 Technique: Multiplanar CT images through the thorax were obtained following administration of IV con trast Findings: Heart size is normal. No pericardial effusion. Great vessels are unremarkable. Acute bi lateral pulmonary emboli involving all lobes. No pathologically enlarged thoracic lymph nodes. Tria ngular consolidation within the right lower lobe. No pneumothorax. No pleural fluid. No suspicious lung masses or lung nodules. Within the visualized upper abdomen, the liver is fatty. No acute osseous abnormalities. Impression: 1. Acute bilateral pulmonary emboli. 2. Right lower lobe pulmonary infarction. 3. Hepatic steatosis. Critical results communicated to Ismael Villasenor at 8:57 a.m. 01/04/2020
--- NOTE | 2020-01-04 09:13 | PCM.DC ---
Final Diagnosis: Bilateral Pulmonary Emboli w/ RLL Infaract, New onset (1) Bilateral pulmonary embolism: Status: Acute Code(s): I26.99 - Other pulmonary embolism without acute cor pulmonale SNOMED Code(s): 83752331 (2) Acute alcoholic gastritis: Status: Acute Code(s): K29.20 - Alcoholic gastritis without bleeding SNOMED Code(s): 2322191 Qualifiers: Gastritis bleeding: presence of bleeding unspecified Qualified Code(s): K29.20 - Alcoholic gastritis without bleeding (3) Enteritis: Status: Acute Code(s): K52.9 - Noninfective gastroenteritis and colitis, unspecified SNOMED Code(s): 50277986 (4) Pneumonia: Status: Acute Code(s): J18.9 - Pneumonia, unspecified organism SNOMED Code(s): 352034308 Qualifiers: Laterality: right Lung location: lower lobe of lung Pneumonia type: due to unspecified organism Qualified Code(s): J18.9 - Pneumonia, unspecified organism (5) Alcohol abuse: Status: Chronic Code(s): F10.10 - Alcohol abuse, uncomplicated SNOMED Code(s): 03953363 (6) Nausea & vomiting: Status: Acute Code(s): R11.2 - Nausea with vomiting, unspecified SNOMED Code(s): 28145981 Qualifiers: Vomiting type: bilious vomiting Qualified Code(s): R11.14 - Bilious vomiting (7) Hypertension: Status: Acute Code(s): I10 - Essential (primary) hypertension SNOMED Code(s): 24044100 Qualifiers: Hypertension type: essential hypertension Qualified Code(s): I10 - Essential (primary) hypertension (8) Tobacco dependence: Status: Chronic Code(s): F17.200 - Nicotine dependence, unspecified, uncomplicated SNOMED Code(s): 78735214 (9) Tobacco abuse counseling: Status: Acute Code(s): Z71.6 - Tobacco abuse counseling SNOMED Code(s): 444668026 (10) Insomnia: Status: Chronic Code(s): G47.00 - Insomnia, unspecified SNOMED Code(s): 201626914 Qualifiers: Insomnia type: unspecified Qualified Code(s): G47.00 - Insomnia, unspecified (11) Cannabis dependence, daily use: Status: Chronic Reason for Hospitalization: Elevated WBC's w/ N/V New notation GRISELDA PE w/ RLL Infarct 01/04/2020--transfer out. Prognosis at Discharge: Guarded w/ new significant problem noted--GRISELDA PE Condition at Discharge: Guarded to be transferred w/ Lovenox 1mg/Kg sub-q STAT and then initiate [facility]. Medications at [facility]charge: Ambulatory Orders Medication Instructions Recorded lisinopril 30 mg PO DAILY 10/31/19 quetiapine [Seroquel] 100 mg PO BEDTIME 10/31/19 ondansetron HCl 4 mg PO Q8H PRN #14 tab 12/21/19 Active Medications Acetaminophen (Tylenol) 650 mg RC Q6H PRN PRN Reason: fever Albuterol Sulfate (Albuterol 0.083% Neb) 2.5 mg NEB RTQ6H PRN PRN Reason: Cough Last Admin: 01/03/20 15:10 Dose: 2.5 mg Documented by: Enoxaparin Sodium (Lovenox) 70 mg SUBCUT Q12HR [facility] 1st dose given 01/04/2020 9:26 AM Folic Acid (Folic Acid) 1 mg PO DAILY [facility] Last Admin: 01/04/20 08:58 Dose: 1 mg Documented by: CEFTRIAXONE/D5W 1 GM PREMIX (Rocephin 1 Gm/50 Ml D5w) 1 gm in 50 mls @ 75 mls/hr IV DAILY [facility] Stop: 01/06/20 09:29 Last Admin: 01/03/20 09:16 Dose: 75 mls/hr Documented by: Azithromycin 500 mg/ Sodium (Chloride) 250 mls @ 125 mls/hr IV DAILY [facility] Stop: 01/05/20 09:30 Last Admin: 01/03/20 10:38 Dose: 125 mls/hr Documented by: Esomeprazole Magnesium 40 mg/ (Sodium Chloride) 50 mls @ 100 mls/hr IV DAILY [facility] Last Admin: 01/04/20 08:49 Dose: 100 mls/hr Documented by: Sodium Chloride (Sodium Chloride) 1,000 mls @ 83 mls/hr IV .Q12H3M [facility] Last Admin: 01/03/20 13:32 Dose: 83 mls/hr Documented by: Ipratropium Phelps (Atrovent 0.02% Neb) 2.5 ml NEB RTQ6H [facility] Last Admin: 01/04/20 04:50 Dose: 2.5 ml Documented by: Lisinopril (Zestril) 40 mg PO DAILY [facility] Last Admin: 01/04/20 08:58 Dose: 40 mg Documented by: Lorazepam (Ativan) 1 mg IVP Q2H PRN PRN Reason: Alcohol Withdrawal or seizures Multivitamins (Multivitamin Tablet) 1 tab PO DAILY [facility] Last Admin: 01/04/20 08:57 Dose: 1 tab Documented by: Nicotine (Nicoderm 21 Mg) 1 patch TD DAILY [facility] Last Admin: 01/04/20 09:00 Dose: 1 patch Documented by: Quetiapine Fumarate (Seroquel) 100 mg PO BEDTIME [facility] Last Admin: 01/03/20 20:33 Dose: 100 mg Documented by: Sodium Chloride (Saline Flush) 1 syr IVF PRN PRN PRN Reason: To flush IV Last Admin: 01/03/20 04:56 Dose: 1 syr Documented by: Thiamine HCl (Thiamine) 100 mg PO DAILY [facility] Last Admin: 01/04/20 08:58 Dose: 100 mg Documented by: Lab/Diagnostics: Laboratory Results WBC 20.39 K/ul (4.2-10.2) H 01/03/20 05:05 RBC 4.54 10^6/ul (4.70-6.10) L 01/03/20 05:05 Hgb 16.4 g/dl (14.0-18.0) 01/03/20 05:05 Hct 46.7 % (42.0-52.0) 01/03/20 05:05 MCV 102.9 fl (80.0-94.0) H 01/03/20 05:05 MCH 36.1 pg (27.0-31.0) H 01/03/20 05:05 MCHC 35.1 (31.8-35.4) 01/03/20 05:05 RDW Coeff of Pete 18.6 % (11.6-14.8) H 01/03/20 05:05 Plt Count 297 10^3/uL (140-440) 01/03/20 05:05 Immature Gran % (Auto) 0.4 % (0.0-5.0) 01/03/20 05:05 Neut % (Auto) 91.0 % (42.2-75.2) H 01/03/20 05:05 Lymph % (Auto) 3.8 (10.0-50.0) L 01/03/20 05:05 [place] % (Auto) 4.6 (0-10) 01/03/20 05:05 Eos % (Auto) 0.0 % (0.0-7.0) 01/03/20 05:05 Baso % (Auto) 0.2 % (0.0-3.0) 01/03/20 05:05 Immature Gran # (Auto) 0.1 (0.0-1.0) 01/03/20 05:05 Neut # (Auto) 18.6 K/ul (2.0-6.9) H 01/03/20 05:05 Lymph # (Auto) 0.8 K/uL (0.60-3.4) 01/03/20 05:05 [place] # (Auto) 0.9 K/uL (0.4-2.0) 01/03/20 05:05 Eos # (Auto) 0.0 K/ul (0.0-0.7) 01/03/20 05:05 Baso # (Auto) 0.0 K/uL (0-0.2) 01/03/20 05:05 Sodium 137.4 mmol/L (134.5-145) 01/03/20 05:05 Potassium 3.58 mmol/L (3.5-5.1) 01/03/20 05:05 Chloride 95.6 mmol/L (98-107) L 01/03/20 05:05 Carbon Dioxide 31.5 mmol/L (22-30.0) H 01/03/20 05:05 Anion Gap 13.88 01/03/20 05:05 BUN 18.1 mg/dL (9-20) 01/03/20 05:05 Creatinine 1.04 mg/dL (0.60-1.10) 01/03/20 05:05 Estimated GFR (MDRD) 77.00 mL/min 01/03/20 05:05 BUN/Creatinine Ratio 17.40 01/03/20 05:05 Glucose 138.2 mg/dL (74-106) H 01/03/20 05:05 Calcium 9.28 mg/dL (8.4-10.2) 01/03/20 05:05 Total Bilirubin 2.37 mg/dL (0.2-1.3) H 01/03/20 05:05 AST 37.3 U/L (17-59) 01/03/20 05:05 ALT 38.2 U/L (0-50) 01/03/20 05:05 Alkaline Phosphatase 135.2 U/L (38-126) H 01/03/20 05:05 Total Protein 6.87 g/dL (6.3-8.2) 01/03/20 05:05 Albumin 3.90 g/dL (3.5-5.0) 01/03/20 05:05 Globulin 2.97 01/03/20 05:05 Albumin/Globulin Ratio 1.31 01/03/20 05:05 Amylase 77.2 U/L (30-110) 01/03/20 05:05 Lipase 52.2 U/L (23-300) 01/03/20 05:05 Urine Color [place] (YELLOW) 01/03/20 08:00 Urine Clarity Clear (CLEAR) 01/03/20 08:00 Urine pH >=9.0 (5-9) 01/03/20 08:00 Ur Specific [place] 1.010 (1.005-1.030) 01/03/20 08:00 Urine Protein 2+ (NEGATIVE) H 01/03/20 08:00 Urine Glucose (UA) Negative (NEGATIVE) 01/03/20 08:00 Urine Ketones Negative (NEGATIVE) 01/03/20 08:00 Urine Blood Negative (NEGATIVE) 01/03/20 08:00 Urine Nitrite Positive (NEGATIVE) H 01/03/20 08:00 Urine Bilirubin 1+ (NEGATIVE) H 01/03/20 08:00 Urine Urobilinogen 1.0 (0.2) H 01/03/20 08:00 Ur Leukocyte Esterase Negative (NEGATIVE) 01/03/20 08:00 Urine Microscopic RBC 0-2 (0-2) 01/03/20 08:00 Urine Microscopic WBC 2-5 (0-2) 01/03/20 08:00 Ur Squamous Epith Cells 0-2 (0-5) 01/03/20 08:00 Urine Bacteria Trace (NOT PRESENT) 01/03/20 08:00 Urine Mucus 2+ (NOT PRESENT) 01/03/20 08:00 Plasma/Serum Alcohol < 10.0 mg/dL (0.0-50.0) 01/03/20 05:05 Influ A Molecular Assay Negative by naat (NEGATIVE) 01/03/20 10:15 Influ B Molecular Assay Negative by naat (NEGATIVE) 01/03/20 10:15 01/03/2020 CXR Impression: No acute cardiopulmonary processes. 01/03/2020 Exam: CT of the abdomen pelvis with intravenous contrast. Comparison: 10/31/2019. Reason for exam: Vomiting. FINDINGS: 2.2 x 1.1 cm nodular consolidation in the right lower lobe on axial image number 14. The liver is lower in attenuation in the spleen on the contrasted study. The spleen, adrenal glands, gallbladder, and pancreas appear grossly unremarkable. No hydronephrosis, hydroureter or nephrolithiasis in either kidney. No evidence of obstruction. There is thickening of the small bowel brown without surrounding inflammatory change. The appendix is unremarkable. No intra-abdominal free air or pelvic free fluid. Bladder appears grossly unremarkable. Diverticular disease without surrounding inflammatory change. Degenerative disease in the lumbosacral spine. Impression: 1. No acute inflammatory findings in the abdomen or pelvis. 2. Thickening of the small bowel wall may be physiologic but likely represents enteritis. 2. Nodular consolidation in the right lower lobe measuring 2.2 x 1.1 cm. This finding can be seen with atelectasis, pneumonia, and primary neoplasia. Further evaluation is recommended with CT imaging of the chest. 3. Diverticulosis without diverticulitis. Appendix is unremarkable 01/04/2020 CT Chest w/ Contrast Telephone Impression per Dr. Ruiz: Acute Bilateral Pulmonary Emboli w/ RLL Infarct. Education Provided to Patient and Family: Transfer to [place], [place]. Patient informed of CT results this AM and need to transfer to [facility] for higher level of care to treat Pulmonary Emboli. Educated on Lovenox therapy as ordered per Dr. Ponce, [facility] hospitalist accepting transfer. Follow-ups: As per [facility]. Discharge Disposition: Transfer ([place], [place].) Hospital Course: See H&P attached; CT was done 01/04/2020 AM as recommended RLL finding on CT of abd/pelvis yesterday on admission. CT of Chest w/ contrast noted Acute Bilateral Pulmonary Emboli w/ RLL Infarct. Dr. Campos, collaborating MD, called w/ report and agrees w/ transfer to higher level of care. Chela Raya, Home Teaching [employer] 8 Teacher, notified w/ Case Management and Nurse, Sofy. Vital Signs Temp Pulse Resp BP Pulse Ox 01/04/20 05:16 98.0 F 70 16 143/91 H 100 01/04/20 04:00 138/85 01/04/20 02:00 144/89 H 01/04/20 00:00 77 18 134/82 97 01/03/20 21:31 98.5 F 73 16 152/92 H 98 01/03/20 18:00 98.8 F 89 20 178/104 H 97 01/03/20 14:00 98.6 F 81 18 146/90 H 97 01/03/20 10:10 98.1 F 77 20 153/96 H 96 01/03/20 09:44 98.1 F 77 20 96 01/03/20 08:34 98.8 F 73 18 153/96 H 93 L 01/03/20 04:10 98.1 F 70 20 155/104 H 97 Patient sitting up in bed. Notes slept a little better last night. Nausea is resolving. Appetite good. Throat still a little sore today. Denies chest pain, SOB, SALVADOR, palpitations, or swelling. Head: Normocephalic; No lesions noted. Ears: No pinna tenderness or abnormality. Bilateral canals patent w/o erythema, tenderness, edema, wax or d/c. TM's shiny carleen/rose w/ landmarks present; no bulging or fluid present. Hearing intact. Eyes: Eye lids w/o swelling, erythema, or lesions. PERRLA. No drainage or periorbital edema. Vision grossly intact. Nose: Patent bilaterally. Nasal mucosa pink and moist. No lesions. No discharge or blood noted. Throat: Pharynx w/ mild injection; no lesions or PND. Tonsils w/o deviation, enlargement or lesions. Uvula midline. Mouth: Oral mucosa pink and moist. Tongue normal/midline. Neck: Supple; NT to palpation w/o masses or lymphadenopathy; FROM w/o pain. Neurological: A/OX4. Cranial nerves II-XII evaluated and intact. BLANCHARD well; symmetrical. Symmetrical face and body posture. Gait steady. Heel to toe w/o difficulty. Romberg negative. Reflexes intact w/ DTR 2+/4+ patellar, Achilles, bicep, brachial and triceps. Strength 4/5= bilaterally UE and LE. Sensation intact to light and strong tactile extremities X4. No Parkinsons or other tremor, head bobbing, or pill rolling tremor noted. Chest: Chest wall symmetric; no pectus deformity. NT to palpation. Lungs: Rhonchi (Right mid and lower lobes. No wheezes. No retractions. Respirations easy and regular at rest and exercise. No cough on exam. O2 sat 100% on RA. Heart: Carotid Arteries normal, no bruits or abnormal pulsations. Jugular veins w/o pulsations or JVD. Palpation w/ normal PMI; no palpable thrill. RRR. No murmur or gallops. Extremities w/o clubbing, cyanosis, edema or notable temperature changes. NBB. Abdomen: Normal inspection w/ no visible pulsations. Normal contour. HENNA/SO present; no bruits. Soft, NT, no rebound tenderness or guarding, no masses or organomegaly. No CVA tenderness. No hernias noted. Rectal not examined. M/S: BLANCHARD well and symmetrically. No digital clubbing or cyanosis present w/ sensation intact X4. All extremities w/ normal temperature; no swelling, edema, or ulcerations. DP pulses 2+ bilaterally. Normal capillary refill. NeuroPsych: Alert & oriented X4. Good eye contact. Cooperative and pleasant. Resting quietly in bed. Appears calm at present. Thought content appropriate. ST & LT memory intact at present. Judgement appropriate. Denies active thoughts or plan SI or HI; no history suicide attempt or ideation in past. Plan: Bilateral P.E. w/ RLL Infarct-- Lovenox 1mg/Kg 70mg given sub-q w/ Lovenox for PE tx to be continued. Patient transferred to [facility] w/ Dr. Ponce, hospitalist, assuming care. Patient stable on d/c per EMS. Care to be assumed per Dr. Ponce.
[2020-01-04] MEDS ORDERED: LOVENOX SUBCUT STA (09:21)
--- NOTE | 2020-01-04 17:46 | PCM.PROG ---
CRITICAL CARE TIME: 55 minutes began w/ call from Dr. Ruiz radiologist w/ AM CT Chest w/ contrast noting bilateral pulmonary emboli w/ RLL infarction; Worked w/ Nurse supply chain development manager, Jonelle [facility], and case management for patient transfer to [facility] w/ report called to Dr. Ponce, hospitalist [place], and plan of care for transport and Lovenox therapy to be started STAT discussed and orders received. Records including discs of 2 CT's in last 2 days w/ all hospital reports, H&P, and D/C summary completed and copied and sent with transfer. Time w/ nursing staff for huddle and transfer completed successfully. Patient was also kept abreast of radiology reports, plan of care w/ different phases of transport readiness and actual EMS transfer. Patient acknowledged understanding and agreed w/ plan of care.
[2020-01-04] MEDS ORDERED: LOVENOX SUBCUT SCH (21:00)
--- NOTE | 2020-01-06 13:48 | PCM.PROG ---
Transfer to [facility] 01/04/2020 for Bilateral P.E. w/ RLL Infarct per CT scan, f-u call finds patient doing well. Was treated w/ Lovenox w/ consult and d/c home 01/05/2020. Patient notes he has hematology consult for further w-u for his hypercoagulation state. He is feeling much better and voices his appreciation of his care at [facility]. No questions at this time.
== END 2020-01-04 10:15 | disposition short-term general hospital (02) | DRG 391 ==
LOC: ED 04:09 → MEDSURG B 04:09 → OBSVTOIN 08:53 → MEDSURG B 09:32
PROVIDERS: ADMIT Nurse Practitioner Family; ATTEND Nurse Practitioner Family
DX: F17.210 Nicotine dependence, cigarettes, uncomplicated; R30.0 Dysuria; K52.9 Noninfective gastroenteritis and colitis, unspecified; R10.84 Generalized abdominal pain; I10 Essential (primary) hypertension; K57.90 Diverticulosis of intestine, part unspecified, without perforation or abscess without bleeding; J18.1 Lobar pneumonia, unspecified organism; I26.99 Other pulmonary embolism without acute cor pulmonale; R42 Dizziness and giddiness; R53.1 Weakness; K29.20 Alcoholic gastritis without bleeding; G47.00 Insomnia, unspecified; F10.10 Alcohol abuse, uncomplicated; F12.20 Cannabis dependence, uncomplicated; F41.9 Anxiety disorder, unspecified; D72.829 Elevated white blood cell count, unspecified; Z71.6 Tobacco abuse counseling; F32.9 Major depressive disorder, single episode, unspecified; Z79.899 Other long term (current) drug therapy

== ENCOUNTER 2020-01-17 08:59 | Observation (INO) ==
--- NOTE | 2020-01-17 09:17 | ED.PDOC ---
General ED Provider: Dr. TRISTA GALARZA Chief Complaint: GI Bleed Stated Complaint: Vomiting last night - had blood in vomit. Admits to ETOH. Time Seen by Physician: 09:16 Mode of Arrival: Walk-In Information Source: Patient Exam Limitations: No limitations Nursing and Triage Documentation Reviewed and Agree: Yes Does patient meet sepsis criteria?: No System Inflammatory Response Syndrome: Not Applicable Sepsis Protocol: For patient's 13 years and over: Temp is 96.8 and below OR 101 and greater Pulse >90 BPM Resp >20/minute Acutely Altered Mental Status Are patient's symptoms suggestive of a new infection, such as: -Pneumonia -Skin, Soft Tissue -Endocarditis -UTI -Bone, Joint Infection -Implantable Device -Acute Abdominal Infection -Wound Infection -Meningitis -Blood Stream Catheter Infection -Unknown Review of Systems Review Of Systems Constitutional: Reports Weakness Respiratory: Reports No symptoms; Denies Cough Cardiac: Reports No symptoms; Denies Chest pain GI: Reports Abdominal pain (Diffuse lower abdominal) Skin: Reports No symptoms; Denies Bruising All Other Systems: Reviewed and Negative [facility] Medical History Cannabis dependence, daily use (Chronic) Diverticulosis (Acute) Environmental and seasonal allergies (Acute) Hypertension (Acute) Insomnia (Chronic) Pulmonary embolism and infarction (Acute) Right arm fracture (Acute) Tobacco dependence (Chronic) Family History Mother No problems noted. FATHER Hypertension Lupus SISTER No problems noted. BROTHER No problems noted. Social History Smoking and tobacco status: Current every day smoker Tobacco: How many years used: 30 Smoking status stop date: 01/04/20 How long ago did patient quit smokin days ago; on Nicotine patch and Chantix at present. Quit status: quit date established Alcohol intake: current Alcohol intake frequency: a few times a week Alcohol type: hard liquor Counseling given: Yes Substance use type: does not use Number of children: 2 Highest education level completed: 11th grade Current occupational status: other Current occupation: Part-time painting apartments. Physical Exam Physical Exam Appearance: Reports Well-appearing Ill-appearing: None Pain Distress: None Eyes: Reports JM, EOMI and Conjunctiva clear ENT: Reports Nose normal and Oropharynx normal Neck: Supple Respiratory: Reports Airway patent, Breath sounds clear and Breath sounds equal Cardiovascular: Reports RRR and Pulses normal GI/: Reports Soft, Nontender and No masses Musculoskeletal: Reports Normal strength, ROM intact and No edema Skin: Reports Warm, Dry and Normal color Neurological: Reports Sensation intact, Motor intact, Alert and Oriented Psychiatric: Reports Affect appropriate and Mood appropriate Interpretation Radiology Interpretation Radiology Interpretation By: Radiologist Exam Interpreted: CT Scan (Abd/Pelvis - no acute intrabdominal process; R LLobe small infarct) Critical Care Note Critical Care Note Total Time (mins): 35 Comments: Review of clinical picture, history Bilat PEs with subsequent TX Eloquis. Hematemesis reported lat night; emesis (gastrocult neg); review of labs and CT; discussion with Hospitalist and decision to admit. Course Course Hematology/Chemistry: 01/17/20 09:36 01/17/20 09:36 Orders, Labs, Meds: Lab Review 01/17/20 01/17/20 01/17/20 09:36 09:36 09:36 WBC 17.16 H RBC 4.69 L Hgb 17.1 Hct 48.8 MCV 104.1 H MCH 36.5 H MCHC 35.0 RDW Coeff of Pete 17.2 H Plt Count 333 Immature Gran % (Auto) 0.3 Neut % (Auto) 89.2 H Lymph % (Auto) 4.4 L [place] % (Auto) 5.9 Eos % (Auto) 0.0 Baso % (Auto) 0.2 Immature Gran # (Auto) 0.1 Neut # (Auto) 15.3 H Lymph # (Auto) 0.8 [place] # (Auto) 1.0 Eos # (Auto) 0.0 Baso # (Auto) 0.0 PT 10.2 INR 1.04 APTT 27.8 Sodium 136.0 Potassium 3.97 Chloride 95.3 L Carbon Dioxide 30.5 H Anion Gap 14.17 BUN 22.8 H Creatinine 1.24 H Estimated GFR (MDRD) 62.00 BUN/Creatinine Ratio 18.38 Glucose 124.6 H Calcium 10.05 Total Bilirubin 1.46 H AST 30.3 ALT 31.5 Alkaline Phosphatase 125.7 Total Protein 7.31 Albumin 4.40 Globulin 2.91 Albumin/Globulin Ratio 1.51 Gastric Fluid pH Gastric Occult Blood 01/17/20 10:10 WBC RBC Hgb Hct MCV MCH MCHC RDW Coeff of Pete Plt Count Immature Gran % (Auto) Neut % (Auto) Lymph % (Auto) [place] % (Auto) Eos % (Auto) Baso % (Auto) Immature Gran # (Auto) Neut # (Auto) Lymph # (Auto) [place] # (Auto) Eos # (Auto) Baso # (Auto) PT INR APTT Sodium Potassium Chloride Carbon Dioxide Anion Gap BUN Creatinine Estimated GFR (MDRD) BUN/Creatinine Ratio Glucose Calcium Total Bilirubin AST ALT Alkaline Phosphatase Total Protein Albumin Globulin Albumin/Globulin Ratio Gastric Fluid pH 5 Gastric Occult Blood Negative Orders Category Date Time Status NPO REMINDER: IMAGING ONCE CARE 01/17/20 10:29 Completed ED IV/MEDIPORT/POWERPORT .ONCE EMERGENCY 01/17/20 09:29 Active CBC W/ AUTO DIFF Stat LAB 01/17/20 09:36 Completed COMPREHENSIVE METABOLIC PANEL Stat LAB 01/17/20 09:36 Completed GASTRIC OCCULT BLOOD AND PH Stat LAB 01/17/20 10:10 Completed PARTIAL THROMBOPLASTIN TIME Stat LAB 01/17/20 09:36 Completed PT WITH INR Stat LAB 01/17/20 09:36 Completed 0.9 % Sodium Chloride [Saline Flush] MEDS 01/17/20 09:29 Active 1 syr IVF PRN PRN Ondansetron HCl/Pf [Zofran 4 mg/2 ml] MEDS 01/17/20 11:55 Discontinued 4 mg .ROUTE .STK-MED ONE Ondansetron HCl/Pf [Zofran 4 mg/2 ml] MEDS 01/17/20 10:09 Discontinued 4 mg IVP ONCE STA Ondansetron HCl/Pf [Zofran 4 mg/2 ml] MEDS 01/17/20 11:53 Discontinued 4 mg IVP ONCE STA Sodium Chloride 0.9% [Sodium Chloride] 1,000 ml MEDS 01/17/20 09:[address] ABDOMEN/PELVIS W CONTRAST Stat RADS 01/17/20 10:28 Completed Medications Generic Name Dose Route Start Last Admin Trade Name Freq PRN Reason Stop Dose Admin Apixaban 5 mg 01/17/20 21:00 Eliquis PO BID AUNG Famotidine 20 mg 01/17/20 13:00 01/17/20 13:10 Pepcid IVP 20 mg Q12HR AUNG Administration Sodium Chloride 1,000 mls @ 100 mls/hr 01/17/20 12:43 01/17/20 13:10 Sodium Chloride IV 100 mls/hr .Q10H AUNG Administration Promethazine HCl 25 mg/ Sodium 51 mls @ 75 mls/hr 01/17/20 17:00 01/17/20 17:46 Chloride IV 01/17/20 23:41 75 mls/hr Q6H AUNG Administration Lisinopril 30 mg 01/18/20 09:00 Zestril PO DAILY AUNG Lorazepam 1 mg 01/17/20 17:26 Ativan IVP Q2H PRN Anxiety Non-Formulary Medication 1 mg 01/17/20 21:00 Varenicline [Chantix] PO BID AUNG Quetiapine Fumarate 100 mg 01/17/20 21:00 Seroquel PO BEDTIME AUNG Sodium Chloride 1 syr 01/17/20 09:29 01/17/20 09:32 Saline Flush IVF 1 syr PRN PRN Administration To flush IV Discontinued Medications Generic Name Dose Route Start Last Admin Trade Name Freq PRN Reason Stop Dose Admin Sodium Chloride 1,000 mls @ 1,000 mls/hr 01/17/20 09:28 01/17/20 09:32 Sodium Chloride IV 01/17/20 10:27 1,000 mls/hr BOLUS STA Administration Sodium Chloride 1,000 mls @ 75 mls/hr 01/17/20 12:30 01/17/20 12:56 Sodium Chloride IV Not Given .[id number] AUNG Lisinopril 30 mg 01/17/20 18:35 01/17/20 19:02 Zestril PO 01/17/20 18:36 30 mg ONCE STA Administration Ondansetron HCl 4 mg 01/17/20 10:09 01/17/20 10:20 Zofran 4 Mg/2 Ml IVP 01/17/20 10:10 4 mg ONCE STA Administration Ondansetron HCl 4 mg 01/17/20 11:53 01/17/20 11:58 Zofran 4 Mg/2 Ml IVP 01/17/20 11:54 4 mg ONCE STA Administration Vital Signs: Temp Pulse Resp BP Pulse Ox 01/17/20 09:00 96.7 F L 74 16 173/101 H 97 Discharge Plan Discharge Patient Disposition: PLACED OBSERVATION ED Provider: TRISTA GALARZA Condition: Good Discharge Date/Time: 01/17/20 12:27
[2020-01-17] MEDS ORDERED: SODIUM CHLORIDE 1,000 ML IV STA (09:28)
[2020-01-17 09:40] LABS: HEMATOCRIT 48.8 % (42.0-52.0)
[2020-01-17] MEDS ORDERED: ZOFRAN 4 MG/2 ML IVP STA ×2 (10:09→11:53)
--- NOTE | 2020-01-17 11:11 | CT ---
EXAM: CT abdomen pelvis with contrast HISTORY: Abdominal pain COMPARISON: 01/03/2020 TECHNIQUE: CT abdomen pelvis performed with intravenous contrast. Coronal and sagittal reformatted images obtained. FINDINGS: Persistent filling defect suggested in the right lower lobe, poorly evaluated. Persistent rounded consolidation right lower lobe measures 1.7 cm and mildly decreased. No free air. No acute abnormalities of the bones. Degenerative change in the spine. Remote fracture of the left ninth ri b with callus formation. Heart normal in size. Liver decreased in attenuation. Gallbladder unremar kable. Pancreas unremarkable. Spleen unremarkable. Adrenals unremarkable. Kidneys unremarkable. Aorta normal in caliber. Mild atherosclerosis. Bladder unremarkable. Small bilateral fat containin g inguinal hernias. Prostate normal in size. No lymphadenopathy or ascites. Small fat-containing p eriumbilical hernia. Small hiatal hernia. No dilated loops small bowel. Appendix appears normal. The colon unremarkable. No inflammatory stranding identified in the abdomen pelvis. IMPRESSION: 1. No acute inflammatory process identified in the abdomen or pelvis. 2. Hepatic steatosis. 3. Persistent filling defect/pulmonary embolism suggested in the right lower lobe, poorly evaluated. Rounded consolidation right lower lobe is mildly decreased, likely pulmonary infarction. Pulmonary emboli and a pulmonary infarction were described on prior CT chest 01/04/2020.
[2020-01-17] MEDS ORDERED: ZOFRAN 4 MG/2 ML ONE (11:55)
[2020-01-17] MEDS ORDERED: ZOFRAN TAB PO PRN (12:12)
[2020-01-17] MEDS ORDERED: SODIUM CHLORIDE 1,000 ML IV SCH (12:30)
[2020-01-17] MEDS ORDERED: PEPCID 20 MG in SODIUM CHLORIDE 50 ML IV SCH (13:00)
[2020-01-17 13:04] VITALS: BMI 27.4
--- NOTE | 2020-01-17 13:04 | PCM ---
Chief Complaint Chief Complaint: "Vomiting" History of Present Illness History of Present Illness: Kate Rosario is a 49 yo male w/ hx Alcoholism, Cannabis Dependence Daily Use, Insomnia, HTN, Tobacco Dependence, Bilateral PE w/ RLL Infarct (Dx'd 01/04/2020; tx'd w/ Apixaban 5mg PO BID), and recurrent alcoholic gastritis who presented to [facility] ER 01/17/2020 8:59 w/ 2 day onset of progressively worsening to severe vomiting for about 10 hrs. States he has had at least 20 episodes of bile to "pea brown" emesis since onset. There were associated chills, sweats, weakness, fatigue, dizziness, loss of appetite, hematemesis, sore throat post vomiting, loss of appetite, concentrated dark brown urine, and inability to even keep water down. Unable to take his Zofran or regular meds. No home treatment tolerated because of vomiting. ER abnormal labs: WBC elevated 17.16 w/ patient afebrile as per last hospitalization w/ MCV 104.1H, MCH 36.5H, RDW 17.2H, Neutro% 89.2H, Lymph% 4.4L, Neutro# 15.3H and PT/INR/APTT wnl; CBC abnormalities as w/ last admission and hematology consult has been recommended; CMP essentially WNL except sl. elevated BUN/Creat 22.8/1.24 likely d/t volume loss w/ vomiting, Total Bili 1.46 sl high w/ influence of alcohol use and dehydration/hepatic steotosis. Amylase and lipase WNL 70.4/Lipase 98.3. Urinalysis notes mild dehydration w/ recent alcohol use w/ 2+ protein unchanged from 01/03/2020 admission, Ketones neg, Nitrite +, Urine Bili 1+ down from previous 2+, and Urobilinogen improved 1.0H from 2.0H last admission. Patient had one bilous emesis in ER which tested negative for occult blood. CT abd/pelvis w/ contrast notes no acute inflammatory process in the abdomen or pelvis; hepatic steatosis; Bilateral PE w/ RLL infarct as previously noted on Lung CT 01/04/2020. Patient was admitted for observation status re: Recurrent acute alcoholic gastritis. Patient will be monitored w/ anti-emetic therapy, clear liquid diet, IVF replacement, and monitoring for DT's. Likely discharge in 24-48 hrs if N/V controlled and not further complications develop. Last [facility] hospitalization 01/02-01/04/2020 resulted in transfer to [facility] 01/03-01/06/2020 for tx Bilateral PE w/ referral to [facility] in [place] for Wednesday01/19/2020--MD unknown as his daughter made the appt.; ??if this is patient appt. w/ Dr. Conley. Patient is unsure as to whether he had a referral to sterile products processor per [facility]. Patient also notes that his daughter is currently working on an alcohol rehab facility that is covered by his insurance in [place]. Jhon, Case Management, notes that patient also has f-u appt. post last hospitalization for Wednesday01/19/2020 @ 3:30pm w/ Dr. Tre Conley. Review of Systems Constitutional: Reports chills, weakness, sweats, fatigue and loss of appetite; Denies fever Eyes: Denies blurred vision, double-vision, discharge, itching, pain, redness and photophobia Ears: Denies pain, bleeding, drainage, ringing and hearing loss Nose: Denies bleeding, congestion and discharge Throat: Reports pain (sore after all the vomiting.); Denies swelling and voice change Mouth: Denies bleeding, pain and swelling Respiratory: Reports cough ("usual smoker's cough"); Denies shortness of air, wheeze, hemoptysis and pain with breathing Cardiovascular: Denies chest pain, left arm pain, diaphoresis, PND, orthopnea, edema, palpitations and syncope Gastrointestinal: Reports nausea, vomiting and constipation (last 01/15/2020); Denies abdominal pain (denies pain, but lower mid abdomen hurts to touch per pt. ), diarrhea, melena, hematemesis, hematochezia, dysphagia and other Genitourinary: Reports other (dark concentrated brown urine. ); Denies dysuria, hematuria, frequency, incontinence, flank pain, penile discharge, testicular pain and testicular swelling Neurological: Reports dizziness and weakness; Denies headache, seizure, numbness, speech difficulty, problems with walking, tremor, fainting and other Musculoskeletal: Denies pain and swelling in joints Skin: Denies rash, pruritus, lacerations, wounds and bruising Hematology: Denies easy bruising, easy bleeding and swollen glands Endocrine: Reports excessive thirst; Denies weight changes, cold intolerance, heat intolerance, excessive hunger and polyuria Psychiatric: Reports depression (mild), anxiety (mild) and sleeplessness (troubles falling asleep; helped w/ Seroquel); Denies hopelessness, suicidal, hallucinations and other Habits: Reports tobacco use (1ppd X 30 yrs; On chantix and nicotine patch since 01/04/2020), substance use (Used to use MJ daily; not used for 1 week.) and alcohol use (Last ETOH use 01/15/2020 1 pint whiskey; daughter is looking into rehab place at present. ) Allergies Allergies Allergy/AdvReac Type Severity Reaction Status Date / Time No Known Allergies Allergy Verified 01/17/20 09:11 PFS Family History (Updated 01/03/20 @ 10:42 by SHARMILA BACK) Mother No problems noted. FATHER Hypertension Lupus SISTER No problems noted. BROTHER No problems noted. Social History (Updated 01/17/20 @ 14:04 by SHARMILA BACK) Smoking and tobacco status: Current every day smoker Tobacco: How many years used: 30 Smoking status stop date: 01/04/20 How long ago did patient quit smokin days ago; on Nicotine patch and Chantix at present. Quit status: quit date established Alcohol intake: current Alcohol intake frequency: a few times a week Alcohol type: hard liquor Counseling given: Yes Substance use type: does not use Number of children: 2 Highest education level completed: 11th grade Current occupational status: other Current occupation: Part-time painting apartments. Medications Medications: Medications Generic Name Dose Route Start Last Admin Trade Name Tay PRN Reason Stop Dose Admin Apixaban 5 mg 01/17/20 21:00 Eliquis PO BID AUNG Sodium Chloride 1,000 mls @ 100 mls/hr 01/17/20 12:43 Sodium Chloride IV .Q10H AUNG Famotidine 20 mg/ Sodium 52 mls @ 100 mls/hr 01/17/20 13:00 Chloride IV Q12HR AUNG Lisinopril 30 mg 01/18/20 09:00 Zestril PO DAILY AUNG Non-Formulary Medication 1 mg 01/17/20 21:00 Varenicline [Chantix] PO BID AUNG Ondansetron HCl 4 mg 01/17/20 12:12 Zofran Tab PO Q8H PRN Nausea / Vomiting Quetiapine Fumarate 100 mg 01/17/20 21:00 Seroquel PO BEDTIME AUNG Sodium Chloride 1 syr 01/17/20 09:29 01/17/20 09:32 Saline Flush IVF 1 syr PRN PRN Administration To flush IV Body Composition Height: 5 ft 3 in Weight: 155 lb Body Mass Index (BMI): 27.4 Vital Signs Temperature: 98.9 F Pulse Rate: 67 Respiratory Rate: 16 Blood Pressure: 144/70 O2 Sat by Pulse Oximetry: 98 Physical Examination Appearance: Reports Ill-appearing, No pain distress and Well-nourished Ill-appearing: Moderate Pain Distress: None Eyes: Reports JM, EOMI and Conjunctiva clear ENT: Reports Ears normal, Nose normal and Oropharynx normal; Denies TMs Occluded, Rhinorrhea, Epistaxis and Erythema Neck: Supple Respiratory: Reports Airway patent, Breath sounds clear, Breath sounds equal and Respirations nonlabored; Denies Crackles, Rhonchi, Wheezes and Retractions Cardiovascular: Reports RRR, Pulses normal, No rub and No murmur; Denies Irregular rhythm and Tachycardia GI/: Reports Soft, No masses, Bowel sounds normal, No Organomegaly and Tender (Slight mid-epigastric and mid-lower abdominal tenderness on palpation w/o guarding or rebound. ) Musculoskeletal: Reports Normal strength, ROM intact, No edema and No calf tenderness Skin: Reports Warm, Dry and Normal color (No icterus. ); Denies Pale, Diaphoretic and Cyanotic Neurological: Reports Sensation intact, Motor intact, Reflexes intact, Cranial nerves intact, Alert and Oriented (X4.) Psychiatric: Reports Affect appropriate and Mood appropriate; Denies Anxious and Depressed Lab/Tests/Diagnostic Imaging Lab/Tests/Diagnostic Imaging: Lab Review 01/17/20 01/17/20 01/17/20 09:36 09:36 09:36 WBC 17.16 H RBC 4.69 L Hgb 17.1 Hct 48.8 MCV 104.1 H MCH 36.5 H MCHC 35.0 RDW Coeff of Pete 17.2 H Plt Count 333 Immature Gran % (Auto) 0.3 Neut % (Auto) 89.2 H Lymph % (Auto) 4.4 L Bates % (Auto) 5.9 Eos % (Auto) 0.0 Baso % (Auto) 0.2 Immature Gran # (Auto) 0.1 Neut # (Auto) 15.3 H Lymph # (Auto) 0.8 Bates # (Auto) 1.0 Eos # (Auto) 0.0 Baso # (Auto) 0.0 PT 10.2 INR 1.04 APTT 27.8 Sodium 136.0 Potassium 3.97 Chloride 95.3 L Carbon Dioxide 30.5 H Anion Gap 14.17 BUN 22.8 H Creatinine 1.24 H Estimated GFR (MDRD) 62.00 BUN/Creatinine Ratio 18.38 Glucose 124.6 H Calcium 10.05 Total Bilirubin 1.46 H AST 30.3 ALT 31.5 Alkaline Phosphatase 125.7 Total Protein 7.31 Albumin 4.40 Globulin 2.91 Albumin/Globulin Ratio 1.51 Gastric Fluid pH Gastric Occult Blood 01/17/20 10:10 WBC RBC Hgb Hct MCV MCH MCHC RDW Coeff of Pete Plt Count Immature Gran % (Auto) Neut % (Auto) Lymph % (Auto) Bates % (Auto) Eos % (Auto) Baso % (Auto) Immature Gran # (Auto) Neut # (Auto) Lymph # (Auto) Bates # (Auto) Eos # (Auto) Baso # (Auto) PT INR APTT Sodium Potassium Chloride Carbon Dioxide Anion Gap BUN Creatinine Estimated GFR (MDRD) BUN/Creatinine Ratio Glucose Calcium Total Bilirubin AST ALT Alkaline Phosphatase Total Protein Albumin Globulin Albumin/Globulin Ratio Gastric Fluid pH 5 Gastric Occult Blood Negative Patient: KATE ROSARIO Acct:[id number] Medical Record: [id number] : 1970 Loc: EDRoom/Bed: Age/Sex: 49 / MADM Status: REG ER Date of Service: 01/17/20 Ordering Physician: TRISTA GALARZA MD Procedure(s): CT ABDOMEN/PELVIS W CONTRAST Report Number(s): [id number] Accession Number(s): [id number] cc: TRISTA GALARZA MD EXAM: CT abdomen pelvis with contrast HISTORY: Abdominal pain COMPARISON: 01/03/2020 TECHNIQUE: CT abdomen pelvis performed with intravenous contrast. Coronal and sagittal reformatted images obtained. FINDINGS: Persistent filling defect suggested in the right lower lobe, poorly evaluated. Persistent rounded consolidation right lower lobe measures 1.7 cm and mildly decreased. No free air. No acute abnormalities of the bones. Degenerative change in the spine. Remote fracture of the left ninth rib with c allus formation. Heart normal in size. Liver decreased in attenuation. Gallbladder unremarkable. Pancreas unremarkable. Spleen unremarkable. Adrenals unremarkable. Kidneys unremarkable. Aorta normal in caliber. Mild atherosclerosis. Bladder unremarkable. Small bilateral fat containing inguinal hernias. Prostate normal in size. No lymphadenopathy or ascites. Small fat- containing periumbilical hernia. Small hiatal hernia. No dilated loops small bowel. Appendix appears normal. The colon unremarkable. No inflammatory stranding identified in the abdomen pelvis. IMPRESSION: 1. No acute inflammatory process identified in the abdomen or pelvis. 2. Hepatic steatosis. 3. Persistent filling defect/pulmonary embolism suggested in the right lower lobe, poorly evaluated. Rounded consolidation right lower lobe is mildly decreased, likely pulmonary infarction. Pulmonary emboli and a pulmonary infarction were described on prior CT chest 01/04/2020. Dictated By:SEDRICK MORIN Signed By:SEDRICK MORIN MD Dictated Date/Time: 01/17/20 1056 Transcribed Date/Time: 01/17/20 1056 Signed Date/Time: 01/17/20 1111 Orders Category Date Time Status ADMIT OBSERVATION [PLACE PATIENT OBSERVATION] .TO ADMISSION 01/17/20 12:14 Active MEDSURG (NON-MONITORED BED) ACTIVITY QID CARE 01/17/20 12:48 Active INTAKE & OUTPUT Q8HR CARE 01/17/20 12:10 Active NPO REMINDER: IMAGING ONCE CARE 01/17/20 10:29 Completed VITAL SIGNS Q4HR CARE 01/17/20 12:10 Active VTE PREVENTION .SCD 24 Hours CARE 01/17/20 12:09 Active NOTHING BY MOUTH DIETARY 01/17/20 Dinner Ordered ED IV/MEDIPORT/POWERPORT .ONCE EMERGENCY 01/17/20 09:29 Active AMYLASE Routine LAB 01/17/20 12:49 Received BLOOD ALCOHOL Routine LAB 01/17/20 12:49 Received CBC W/ AUTO DIFF DAILY@0600 LAB 01/18/20 06:00 Ordered CBC W/ AUTO DIFF DAILY@0600 LAB 01/19/20 06:00 Ordered CBC W/ AUTO DIFF Stat LAB 01/17/20 09:36 Completed COMPREHENSIVE METABOLIC PANEL DAILY@0600 LAB 01/18/20 06:00 Ordered COMPREHENSIVE METABOLIC PANEL DAILY@0600 LAB 01/19/20 06:00 Ordered COMPREHENSIVE METABOLIC PANEL Stat LAB 01/17/20 09:36 Completed DRUG SCREEN, URINE, RAPID Routine LAB 01/17/20 12:37 Uncollected GASTRIC OCCULT BLOOD AND PH Stat LAB 01/17/20 10:10 Completed LIPASE Routine LAB 01/17/20 12:49 Received PARTIAL THROMBOPLASTIN TIME Stat LAB 01/17/20 09:36 Completed PT WITH INR Stat LAB 01/17/20 09:36 Completed 0.9 % Sodium Chloride [Saline Flush] MEDS 01/17/20 09:29 Active 1 syr IVF PRN PRN Apixaban [Eliquis] MEDS 01/17/20 21:00 Active 5 mg PO BID Famotidine Inj [Pepcid] 20 mg MEDS 01/17/20 13:00 Ordered 0.9 % Sodium Chloride [Sodium Chloride] 50 ml IV Q12HR Lisinopril [Zestril] MEDS 01/18/20 09:00 Active 30 mg PO DAILY Ondansetron HCl [Zofran Tab] MEDS 01/17/20 12:12 Active 4 mg PO Q8H PRN Ondansetron HCl/Pf [Zofran 4 mg/2 ml] MEDS 01/17/20 11:55 Discontinued 4 mg .ROUTE .STK-MED ONE Ondansetron HCl/Pf [Zofran 4 mg/2 ml] MEDS 01/17/20 10:09 Discontinued 4 mg IVP ONCE STA Ondansetron HCl/Pf [Zofran 4 mg/2 ml] MEDS 01/17/20 11:53 Discontinued 4 mg IVP ONCE STA Quetiapine Fumarate [Seroquel] MEDS 01/17/20 21:00 Active 100 mg PO BEDTIME Sodium Chloride 0.9% [Sodium Chloride] 1,000 ml MEDS 01/17/20 12:43 Active IV 100 mls/hr Sodium Chloride 0.9% [Sodium Chloride] 1,000 ml MEDS 01/17/20 12:30 Discontinued IV 75 mls/hr Sodium Chloride 0.9% [Sodium Chloride] 1,000 ml MEDS 01/17/20 09:28 Discontinued IV BOLUS varenicline [Chantix] MEDS 01/17/20 21:00 Active 1 mg PO BID RESUSCITATION STATUS Routine OTHERS 01/17/20 12:[address] ABDOMEN/PELVIS W CONTRAST Stat RADS 01/17/20 10:28 Completed Medications Generic Name Dose Route Start Last Admin Trade Name Freq PRN Reason Stop Dose Admin Apixaban 5 mg 01/17/20 21:00 Eliquis PO BID AUNG Sodium Chloride 1,000 mls @ 100 mls/hr 01/17/20 12:43 Sodium Chloride IV .Q10H AUNG Famotidine 20 mg/ Sodium 52 mls @ 100 mls/hr 01/17/20 13:00 Chloride IV Q12HR AUNG Lisinopril 30 mg 01/18/20 09:00 Zestril PO DAILY AUNG Non-Formulary Medication 1 mg 01/17/20 21:00 Varenicline [Chantix] PO BID AUNG Ondansetron HCl 4 mg 01/17/20 12:12 Zofran Tab PO Q8H PRN Nausea / Vomiting Quetiapine Fumarate 100 mg 01/17/20 21:00 Seroquel PO BEDTIME AUNG Sodium Chloride 1 syr 01/17/20 09:29 01/17/20 09:32 Saline Flush IVF 1 syr PRN PRN Administration To flush IV Discontinued Medications Generic Name Dose Route Start Last Admin Trade Name Freq PRN Reason Stop Dose Admin Sodium Chloride 1,000 mls @ 1,000 mls/hr 01/17/20 09:28 01/17/20 09:32 Sodium Chloride IV 01/17/20 10:27 1,000 mls/hr BOLUS STA Administration Sodium Chloride 1,000 mls @ 75 mls/hr 01/17/20 12:30 Sodium Chloride IV .[id number] [facility] Ondansetron HCl 4 mg 01/17/20 10:09 01/17/20 10:20 Zofran 4 Mg/2 Ml IVP 01/17/20 10:10 4 mg ONCE STA Administration Ondansetron HCl 4 mg 01/17/20 11:53 01/17/20 11:58 Zofran 4 Mg/2 Ml IVP 01/17/20 11:54 4 mg ONCE STA Administration Assessment (1) Acute alcoholic gastritis: Status: Acute Code(s): K29.20 - Alcoholic gastritis without bleeding SNOMED Code(s): 8009997 Qualifiers: Gastritis bleeding: presence of bleeding unspecified Qualified Code(s): K29.20 - Alcoholic gastritis without bleeding (2) Nausea & vomiting: Status: Acute Code(s): R11.2 - Nausea with vomiting, unspecified SNOMED Code(s): 99372652 Qualifiers: Vomiting type: bilious vomiting Qualified Code(s): R11.14 - Bilious vomiting (3) Hepatic steatosis: Status: Acute Code(s): K76.0 - Fatty (change of) liver, not elsewhere classified SNOMED Code(s): 264887493 (4) Hypertension: Status: Acute Code(s): I10 - Essential (primary) hypertension SNOMED Code(s): 54419044 Qualifiers: Hypertension type: essential hypertension Qualified Code(s): I10 - Essential (primary) hypertension (5) Alcohol abuse: Status: Chronic Code(s): F10.10 - Alcohol abuse, uncomplicated SNOMED Code(s): 37516097 (6) Tobacco abuse counseling: Status: Acute Code(s): Z71.6 - Tobacco abuse counseling SNOMED Code(s): 240717886 (7) Tobacco dependence: Status: Chronic Code(s): F17.200 - Nicotine dependence, unspecified, uncomplicated SNOMED Code(s): 34336330 (8) Bilateral pulmonary embolism: Status: Acute Code(s): I26.99 - Other pulmonary embolism without acute cor pulmonale SNOMED Code(s): 66269056 (9) Cannabis dependence, daily use: Status: Chronic (10) Diverticulosis: Status: Acute Code(s): K57.90 - Diverticulosis of intestine, part unspecified, without perforation or abscess without bleeding SNOMED Code(s): 698118215 (11) Insomnia: Status: Chronic Code(s): G47.00 - Insomnia, unspecified SNOMED Code(s): 443320011 Qualifiers: Insomnia type: unspecified Qualified Code(s): G47.00 - Insomnia, unspecified Plan Plan: * Acute Alcoholic Gastritis w/ N/V and Hepatic Steatosis-- Worsening from previous admission 01/03/2020. Pepcid 20mg IV BID; Phenergan 25mg IVPB Q 6hrs X2 and then Zofran 4mg IVP Q6-8 hrs prn N/V; NPO X 2 hrs then have started Clear liquids to avoid red and green dyes as tolerated. Advance to Full liquid diet in AM/breakfast w/o milk or milk products and dyes as before. Monitor labs; chart emesis and color/consistency/amount. IVF replacement NS @ 100cc/hr.; VS Q 4hrs & prn. Hopefully N/V to be controlled w/ f-u appt. w/ Dr. Conley for further management and GI referral. * HTN--worsened some w/ no BP meds for 2 days due to n/v; Continue home meds; Heart healthy diet when eating more than liquids; VS Q 4hrs. * Alcohol Abuse--chronic problem w/ intermittent drinking--1 pint whiskey last Wednesday01/14/2020; observe for DT's/seizures; Ativan 1mg Q 2 hrs prn DT's or seizures; Seizure precautions; Case management discuss rehab w/ patient/daughter. * Tobacco Dependence w/ counseling--improved from last admission; Counseling w/ patient who is A/OX4; patient on Chantix and nicotine patches--has brought them w/ him and may use home supply at hospital. Praised and encouraged to co ntinue using RX's for tobacco cessation. 10 minutes counseling. * Bilateral P.E. w/ RLL infarct--unchanged w/ Eliquis continued but missed for 36 hrs---will resume Eliquis this afternoon, but if unable to keep medication down due to N/V, will switch to Lovenox 70mg sub-Q Q 12hrs. EZRA's to be used also for VTE prevention. * Cannabis dependence, daily use--improved w/ use 3-4 times/week instead of daily; needs to stop completely and should be part of his ETOH rehab. Patient counseled and agrees. * Diverticulosis--stable; no inflammation noted per CT scan. * Insomnia--chronic and unimproved w/ dependence on Seroquel; con't home med.
[2020-01-17] MEDS: SODIUM CHLORIDE 1,000 ML IV SCH ×2 (13:10→23:21)
[2020-01-17] MEDS: PEPCID IVP SCH ×2 (13:10→21:18)
[2020-01-17] MEDS ORDERED: ATIVAN IVP PRN (17:26)
[2020-01-17] MEDS ORDERED: PHENERGAN 25 MG/ML VIAL ONE ×2 (17:43→23:05)
[2020-01-17] MEDS: PHENERGAN 25 MG/ML VIAL 25 MG in SODIUM CHLORIDE 50 ML IV SCH ×2 (17:46→23:07)
[2020-01-17] MEDS ORDERED: ZESTRIL PO STA (18:35)
[2020-01-17] MEDS: ELIQUIS PO SCH (21:18)
[2020-01-17] MEDS: SEROQUEL PO SCH (21:18)
[2020-01-17] MEDS: VARENICLINE 1 MG PO SCH (21:19)
[2020-01-18 05:32] LABS: HEMATOCRIT 42.8 % (42.0-52.0)
[2020-01-18] MEDS: ZESTRIL PO SCH (08:13)
[2020-01-18] MEDS: PEPCID IVP SCH ×2 (08:13→21:26)
[2020-01-18] MEDS: ELIQUIS PO SCH ×2 (08:14→21:15)
[2020-01-18] MEDS ORDERED: ZESTRIL PO SCH (09:00)
[2020-01-18] MEDS: SODIUM CHLORIDE 1,000 ML IV SCH ×2 (10:12→21:48)
[2020-01-18] MEDS: VARENICLINE 1 MG PO SCH ×2 (10:12→21:47)
--- NOTE | 2020-01-18 11:00 | PCM.PROG ---
Date Seen by Provider: 01/18/20 Time Seen by Provider: 10:55 Subjective: Patient sitting up at bedside; just took a shower w/o assistance and denies dizziness, weakness, SOB, CP, abdominal pain, N/V, Diarrhea. Last feeling of nausea after arrival to inpatient unit yesterday. Denies myalgias, joint aches, or other symptoms of illness. States his chantix is working, but would like his nicotine patch 21 if he has to stay the night. Patient praised for his tobacco cessation success and encouraged to continue cessation. "I feel really good right now." Difficult to sleep in the hospital..."light sleeper." Objective: Vitals: T=97.9 F, P=62, R=19, KS=328/62, SPO2=99 HEENT: Eyes-no redness, swelling or d/c. Ears: pinna w/o tenderness/pain. Hearing--CROW w/o hearing aids. Pharynx: w/o injection, cobblestoning, lesions or PND. No dysphagia. Neck: Supple; NT; No lymphadenopathy Lungs: CTA. No rales, rhonchi, crackles, or wheezing. No cough on exam. No retractions. Respirations easy and regular. RA O2 sat 99%. CVS: RRR; Systolic holistic murmur > L 5th ICS 3+/4+. No JVD. PPP 2+/4+ and =. No edema. No cyanosis; NBB Abdomen: Soft, NT, no rebound tenderness or guarding, no organomegaly or masses. HENNA/SO present. Extremities: BLANCHARD well w/ symmetry. No edema or notable abnormalities. Neurological: A/O X4. Cooperative and pleasant. Good eye contact. Up and about in room w/o assistance; steady. Normal gait. Speech clear. No tremors. Skin: Dry & intact. No rashes or lesions noted. Lab/Tests/Diagnostic Imaging: Laboratory Results WBC 9.56 K/ul (4.2-10.2) D 01/18/20 05:10 RBC 3.96 10^6/ul (4.70-6.10) L 01/18/20 05:10 Hgb 14.4 g/dl (14.0-18.0) 01/18/20 05:10 Hct 42.8 % (42.0-52.0) D 01/18/20 05:10 MCV 108.1 fl (80.0-94.0) H 01/18/20 05:10 MCH 36.4 pg (27.0-31.0) H 01/18/20 05:10 MCHC 33.6 (31.8-35.4) 01/18/20 05:10 RDW Coeff of Pete 17.2 % (11.6-14.8) H 01/18/20 05:10 Plt Count 257 10^3/uL (140-440) 01/18/20 05:10 Immature Gran % (Auto) 0.4 % (0.0-5.0) 01/18/20 05:10 Neut % (Auto) 69.8 % (42.2-75.2) 01/18/20 05:10 Lymph % (Auto) 20.8 (10.0-50.0) 01/18/20 05:10 Sunflower % (Auto) 7.6 (0-10) 01/18/20 05:10 Eos % (Auto) 0.9 % (0.0-7.0) 01/18/20 05:10 Baso % (Auto) 0.5 % (0.0-3.0) 01/18/20 05:10 Immature Gran # (Auto) 0.0 (0.0-1.0) 01/18/20 05:10 Neut # (Auto) 6.7 K/ul (2.0-6.9) 01/18/20 05:10 Lymph # (Auto) 2.0 K/uL (0.60-3.4) 01/18/20 05:10 Sunflower # (Auto) 0.7 K/uL (0.4-2.0) 01/18/20 05:10 Eos # (Auto) 0.1 K/ul (0.0-0.7) 01/18/20 05:10 Baso # (Auto) 0.1 K/uL (0-0.2) 01/18/20 05:10 PT 10.2 SEC (9.3-11.0) 01/17/20 09:36 INR 1.04 SI (0.0-3.9) 01/17/20 09:36 APTT 27.8 SEC (23.9-40.0) 01/17/20 09:36 Sodium 136.6 mmol/L (134.5-145) 01/18/20 05:10 Potassium 3.68 mmol/L (3.5-5.1) 01/18/20 05:10 Chloride 102.8 mmol/L (98-107) 01/18/20 05:10 Carbon Dioxide 28.5 mmol/L (22-30.0) 01/18/20 05:10 Anion Gap 8.98 01/18/20 05:10 BUN 16.2 mg/dL (9-20) 01/18/20 05:10 Creatinine 1.03 mg/dL (0.60-1.10) 01/18/20 05:10 Estimated GFR (MDRD) 77.00 mL/min 01/18/20 05:10 BUN/Creatinine Ratio 15.72 01/18/20 05:10 Glucose 86.5 mg/dL (74-106) 01/18/20 05:10 Calcium 8.66 mg/dL (8.4-10.2) 01/18/20 05:10 Total Bilirubin 1.42 mg/dL (0.2-1.3) H 01/18/20 05:10 AST 33.6 U/L (17-59) 01/18/20 05:10 ALT 26.4 U/L (0-50) 01/18/20 05:10 Alkaline Phosphatase 70.8 U/L (38-126) D 01/18/20 05:10 Total Protein 5.94 g/dL (6.3-8.2) L 01/18/20 05:10 Albumin 3.29 g/dL (3.5-5.0) L 01/18/20 05:10 Globulin 2.65 01/18/20 05:10 Albumin/Globulin Ratio 1.24 01/18/20 05:10 Amylase 70.4 U/L (30-110) 01/17/20 12:49 Lipase 98.3 U/L (23-300) 01/17/20 12:49 Gastric Fluid pH 5 (1.0-8.0) 01/17/20 10:10 Gastric Occult Blood Negative (NEGATIVE) 01/17/20 10:10 Urine Opiates Screen Negative (NEGATIVE) 03/18/20 17:20 Ur Oxycodone Screen Negative (NEGATIVE) 01/17/20 17:20 Urine Methadone Screen Negative (NEGATIVE) 01/17/20 17:20 Ur Propoxyphene Screen Negative (NEGATIVE) 01/17/20 17:20 Ur Barbiturates Screen Negative (NEGATIVE) 01/17/20 17:20 U Tricyclic Antidepress Negative (NEGATIVE) 01/17/20 17:20 Ur Phencyclidine Scrn Negative (NEGATIVE) 01/17/20 17:20 Ur Amphetamine Screen Negative (NEGATIVE) 01/17/20 17:20 U Methamphetamines Scrn Negative (NEGATIVE) 01/17/20 17:20 U Benzodiazepines Scrn Positive (NEGATIVE) H 01/17/20 17:20 Urine Cocaine Screen Negative (NEGATIVE) 01/17/20 17:20 U Cannabinoids Screen Positive (NEGATIVE) H 01/17/20 17:20 Plasma/Serum Alcohol < 10.0 mg/dL (0.0-50.0) 01/17/20 12:49 (1) Acute alcoholic gastritis: Status: Acute Code(s): K29.20 - Alcoholic gastritis without bleeding SNOMED Code(s): 0128331 (2) Nausea & vomiting: Status: Acute Code(s): R11.2 - Nausea with vomiting, unspecified SNOMED Code(s): 20156278 (3) Hepatic steatosis: Status: Acute Code(s): K76.0 - Fatty (change of) liver, not elsewhere classified SNOMED Code(s): 351651654 (4) Hypertension: Status: Acute Code(s): I10 - Essential (primary) hypertension SNOMED Code(s): 41345475 (5) Alcohol abuse: Status: Chronic Code(s): F10.10 - Alcohol abuse, uncomplicated SNOMED Code(s): 06346382 (6) Tobacco abuse counseling: Status: Acute Code(s): Z71.6 - Tobacco abuse counseling SNOMED Code(s): 443537018 (7) Tobacco dependence: Status: Chronic Code(s): F17.200 - Nicotine dependence, unspecified, uncomplicated SNOMED Code(s): 48834351 (8) Bilateral pulmonary embolism: Status: Acute Code(s): I26.99 - Other pulmonary embolism without acute cor pulmonale SNOMED Code(s): 18578703 (9) Cannabis dependence, daily use: Status: Chronic (10) Diverticulosis: Status: Acute Code(s): K57.90 - Diverticulosis of intestine, part unspecified, without perforation or abscess without bleeding SNOMED Code(s): 004924542 (11) Insomnia: Status: Chronic Code(s): G47.00 - Insomnia, unspecified SNOMED Code(s): 966234371 Plan: Acute Alcoholic Gastritis w/ N/V and Hepatic Steatosis-- Improving from admission w/ No N/V for approximately 18 hrs. Con't Pepcid IV BID; Zofran 4mg IVP Q6-8 hrs prn N/V not needed since Phenergan doses X2; Tolerating clear liquids well w/ negative Abd exam and no N/V. Will try Soft low residue diet for now and advance for evening meal if tolerated well. Still avoid milk or milk products and red dyes as before. Monitor labs; chart emesis and color/consistency/amount. Observe over night w/ early AM discharge after seen by [employer] TR[facility] if no problems. Con't IVF replacement NS @ 100cc/hr.; VS Q 4hrs & prn. Plan is d/c in AM w/ f-u appt. w/ Dr. Conley as previous appt for 01/19/2020 for further management and GI referral. HTN--Improving w/ home medications restarted. Heart healthy diet now; VS Q 4hrs. Alcohol Abuse--chronic problem w/ intermittent drinking--1 pint whiskey last Wednesday01/14/2020; Patient seems resolved to seek rehab in his current conversation w/ [employer]; observe for DT's/seizures; Ativan 1mg Q 2 hrs prn DT's or seizures; Seizure precautions; Case management discuss rehab w/ patient/daughter. Tobacco Dependence w/ counseling--improved from last admission; Counseling reinforced w/ encouragement /praise for tobacco cessation w/ patient who is A/OX4 and in agreement; Nicotine #21 patch added as per home regimen per patient request; Con't Chantix. Bilateral P.E. w/ RLL infarct--home Eliquis cont'd; con't EZRA's. Cannabis dependence, daily use--improved w/ use 3-4 times/week instead of daily; needs to stop completely and should be part of his ETOH rehab. Patient counseled and agrees. Diverticulosis--stable; no inflammation noted per CT scan. Insomnia--chronic and unimproved w/ dependence on Seroquel; con't home med.
[2020-01-18] MEDS: NICODERM 21 MG TD SCH (11:39)
[2020-01-18] MEDS: SEROQUEL PO SCH (21:15)
[2020-01-19] MEDS: NICODERM 21 MG TD SCH (08:13)
[2020-01-19] MEDS: ZESTRIL PO SCH (08:13)
[2020-01-19] MEDS: PEPCID IVP SCH (08:14)
[2020-01-19] MEDS: VARENICLINE 1 MG PO SCH (08:15)
[2020-01-19] MEDS: ELIQUIS PO SCH (08:15)
[2020-01-19 10:38] VITALS: BP 162/100; TEMP 98.7
--- NOTE | 2020-01-19 13:53 | PCM.DC ---
Final Diagnosis: Acute Alcoholic Gastritis w/ N/V Hepatitic Steatosis (1) Acute alcoholic gastritis: Status: Acute Code(s): K29.20 - Alcoholic gastritis without bleeding SNOMED Code(s): 8026489 Qualifiers: Gastritis bleeding: presence of bleeding unspecified Qualified Code(s): K29.20 - Alcoholic gastritis without bleeding (2) Nausea & vomiting: Status: Acute Code(s): R11.2 - Nausea with vomiting, unspecified SNOMED Code(s): 04858468 Qualifiers: Vomiting type: bilious vomiting Qualified Code(s): R11.14 - Bilious vomiting (3) Hepatic steatosis: Status: Acute Code(s): K76.0 - Fatty (change of) liver, not elsewhere classified SNOMED Code(s): 345780538 (4) Hypertension: Status: Acute Code(s): I10 - Essential (primary) hypertension SNOMED Code(s): 54258556 Qualifiers: Hypertension type: essential hypertension Qualified Code(s): I10 - Essential (primary) hypertension (5) Alcohol abuse: Status: Chronic Code(s): F10.10 - Alcohol abuse, uncomplicated SNOMED Code(s): 24065400 (6) Tobacco abuse counseling: Status: Acute Code(s): Z71.6 - Tobacco abuse counseling SNOMED Code(s): 042058127 (7) Tobacco dependence: Status: Chronic Code(s): F17.200 - Nicotine dependence, unspecified, uncomplicated SNOMED Code(s): 28135130 (8) Bilateral pulmonary embolism: Status: Acute Code(s): I26.99 - Other pulmonary embolism without acute cor pulmonale SNOMED Code(s): 23982600 (9) Cannabis dependence, daily use: Status: Chronic (10) Diverticulosis: Status: Acute Code(s): K57.90 - Diverticulosis of intestine, part unspecified, without perforation or abscess without bleeding SNOMED Code(s): 911159841 (11) Insomnia: Status: Chronic Code(s): G47.00 - Insomnia, unspecified SNOMED Code(s): 472237996 Qualifiers: Insomnia type: unspecified Qualified Code(s): G47.00 - Insomnia, unspecified Reason for Hospitalization: Acute abdominal pain w/ uncontrollable N/V at home for 2 days--recurrent Acute Alcoholic Gastritis. Prognosis at Discharge: Fair; but guarded and dependent on patient not drinking again. Condition at Discharge: Stable w/o N/V or abdominal pain, diarrhea, or other GI symptoms for 36 hrs. Medications at Discharge: Ambulatory Orders Medication Instructions Recorded lisinopril 30 mg PO DAILY 10/31/19 quetiapine [Seroquel] 100 mg PO BEDTIME 10/31/19 ondansetron HCl 4 mg PO Q8H PRN #14 tab 12/21/19 Chantix 1 mg PO BID 01/17/20 Eliquis 5 mg PO BID 01/17/20 nicotine 1 patch TRANSDERMAL DAILY #1 ea 01/19/20 omeprazole 20 mg PO BID #60 cap 01/19/20 Lab/Diagnostics: Laboratory Results WBC 7.79 K/ul (4.2-10.2) 01/19/20 04:42 RBC 3.79 10^6/ul (4.70-6.10) L 01/19/20 04:42 Hgb 14.1 g/dl (14.0-18.0) 01/19/20 04:42 Hct 41.0 % (42.0-52.0) L 01/19/20 04:42 MCV 108.2 fl (80.0-94.0) H 01/19/20 04:42 MCH 37.2 pg (27.0-31.0) H 01/19/20 04:42 MCHC 34.4 (31.8-35.4) 01/19/20 04:42 RDW Coeff of Pete 16.8 % (11.6-14.8) H 01/19/20 04:42 Plt Count 228 10^3/uL (140-440) 01/19/20 04:42 Immature Gran % (Auto) 0.5 % (0.0-5.0) 01/19/20 04:42 Neut % (Auto) 61.0 % (42.2-75.2) 01/19/20 04:42 Lymph % (Auto) 27.7 (10.0-50.0) 01/19/20 04:42 Pepin % (Auto) 7.3 (0-10) 01/19/20 04:42 Eos % (Auto) 2.7 % (0.0-7.0) 01/19/20 04:42 Baso % (Auto) 0.8 % (0.0-3.0) 01/19/20 04:42 Immature Gran # (Auto) 0.0 (0.0-1.0) 01/19/20 04:42 Neut # (Auto) 4.8 K/ul (2.0-6.9) 01/19/20 04:42 Lymph # (Auto) 2.2 K/uL (0.60-3.4) 01/19/20 04:42 Pepin # (Auto) 0.6 K/uL (0.4-2.0) 01/19/20 04:42 Eos # (Auto) 0.2 K/ul (0.0-0.7) 01/19/20 04:42 Baso # (Auto) 0.1 K/uL (0-0.2) 01/19/20 04:42 PT 10.2 SEC (9.3-11.0) 01/17/20 09:36 INR 1.04 SI (0.0-3.9) 01/17/20 09:36 APTT 27.8 SEC (23.9-40.0) 01/17/20 09:36 Sodium 139.1 mmol/L (134.5-145) 01/19/20 04:42 Potassium 4.00 mmol/L (3.5-5.1) 01/19/20 04:42 Chloride 108.9 mmol/L (98-107) H 01/19/20 04:42 Carbon Dioxide 24.3 mmol/L (22-30.0) 01/19/20 04:42 Anion Gap 9.90 01/19/20 04:42 BUN 12.0 mg/dL (9-20) 01/19/20 04:42 Creatinine 0.97 mg/dL (0.60-1.10) 01/19/20 04:42 Estimated GFR (MDRD) 83.00 mL/min 01/19/20 04:42 BUN/Creatinine Ratio 12.37 01/19/20 04:42 Glucose 90.6 mg/dL (74-106) 01/19/20 04:42 Calcium 8.84 mg/dL (8.4-10.2) 01/19/20 04:42 Total Bilirubin 1.22 mg/dL (0.2-1.3) 01/19/20 04:42 AST 25.6 U/L (17-59) 01/19/20 04:42 ALT 26.2 U/L (0-50) 01/19/20 04:42 Alkaline Phosphatase 65.9 U/L (38-126) 01/19/20 04:42 Total Protein 5.56 g/dL (6.3-8.2) L 01/19/20 04:42 Albumin 3.11 g/dL (3.5-5.0) L 01/19/20 04:42 Globulin 2.45 01/19/20 04:42 Albumin/Globulin Ratio 1.26 01/19/20 04:42 Amylase 70.4 U/L (30-110) 01/17/20 12:49 Lipase 98.3 U/L (23-300) 01/17/20 12:49 Gastric Fluid pH 5 (1.0-8.0) 01/17/20 10:10 Gastric Occult Blood Negative (NEGATIVE) 01/17/20 10:10 Urine Opiates Screen Negative (NEGATIVE) 01/17/20 17:20 Ur Oxycodone Screen Negative (NEGATIVE) 01/17/20 17:20 Urine Methadone Screen Negative (NEGATIVE) 01/17/20 17:20 Ur Propoxyphene Screen Negative (NEGATIVE) 01/17/20 17:20 Ur Barbiturates Screen Negative (NEGATIVE) 01/17/20 17:20 U Tricyclic Antidepress Negative (NEGATIVE) 01/17/20 17:20 Ur Phencyclidine Scrn Negative (NEGATIVE) 01/17/20 17:20 Ur Amphetamine Screen Negative (NEGATIVE) 01/17/20 17:20 U Methamphetamines Scrn Negative (NEGATIVE) 01/17/20 17:20 U Benzodiazepines Scrn Positive (NEGATIVE) H 01/17/20 17:20 Urine Cocaine Screen Negative (NEGATIVE) 01/17/20 17:20 U Cannabinoids Screen Positive (NEGATIVE) H 01/17/20 17:20 Plasma/Serum Alcohol < 10.0 mg/dL (0.0-50.0) 01/17/20 12:49 Date of Service: 01/17/20 Ordering Physician: TRISTA GALARZA MD Procedure(s): CT ABDOMEN/PELVIS W CONTRAST FINDINGS: Persistent filling defect suggested in the right lower lobe, poorly evaluated. Persistent rounded consolidation right lower lobe measures 1.7 cm and mildly decreased. No free air. No acute abnormalities of the bones. Degenerative change in the spine. Remote fracture of the left ninth rib with callus formation. Heart normal in size. Liver decreased in attenuation. Gallbladder unremarkable. Pancreas unremarkable. Spleen unremarkable. Adrenals unremarkable. Kidneys unremarkable. Aorta normal in caliber. Mild atherosclerosis. Bladder unremarkable. Small bilateral fat containing inguinal hernias. Prostate normal in size. No lymphadenopathy or ascites. Small fat- containing periumbilical hernia. Small hiatal hernia. No dilated loops small bowel. Appendix appears normal. The colon unremarkable. No inflammatory stranding identified in the abdomen pelvis. IMPRESSION: 1. No acute inflammatory process identified in the abdomen or pelvis. 2. Hepatic steatosis. 3. Persistent filling defect/pulmonary embolism suggested in the right lower lobe, poorly evaluated. Rounded consolidation right lower lobe is mildly decreased, likely pulmonary infarction. Pulmonary emboli and a pulmonary infarction were described on prior CT chest 01/04/2020. Education Provided to Patient and Family: Keep follow-up appt with Dr. Tre Conley as directed. No Alcohol, No Marijuana or other unprescribed drugs. No tobacco use--continue Chantix as prescribed. Nicotine patches are not usually recommended with Chantix---discuss use of your home Nicotine patches more with Dr. Conley. You are doing great --continue your pathway to be completely tobacco free as discussed. Continue home medications as prescribed. Discuss alcohol rehab follow-up with Dr. Conley and recommendations as per case management. Do what you can as best as you can during the Covid-19 assisted-in lifestyle change. This will not last forever and it is important for you to help yourself and your family. Follow-ups: F-U w/ Dr. Jared Conley 01/22/2020 2PM. F-U w/ [facility] for appt. and assistance for drug/ETOH rehab. Daughter is getting papers for him to complete at this time via mail and then clinic will contact patient for an appointment. Discharge Disposition: Home Hospital Course: Devante Chung is a 49 yo male w/ hx Alcoholism, Cannabis Dependence Daily Use, Insomnia, HTN, Tobacco Dependence, Bilateral PE w/ RLL Infarct (Dx'd 01/04/2020; tx'd w/ Apixaban 5mg PO BID), and recurrent alcoholic gastritis who presented to [facility] ER 01/17/2020 8:59 w/ 2 day onset of progressively worsening to severe vomiting for about 10 hrs. States he has had at least 20 episodes of bile to "pea brown" emesis since onset. He had chills, sweats, weakness, fatigue, dizziness, loss of appetite, hematemesis, sore throat post vomiting, loss of appetite, concentrated dark brown urine, and inability to even keep water down. Zofran was not tolerated and likely not started immediately. This began shortly after consumption of a pint of whiskey. ER abnormal labs: WBC elevated 17.16 w/ patient afebrile as per last hospitalization w/ MCV 104.1H, MCH 36.5H, RDW 17.2H, Neutro% 89.2H, Lymph% 4.4L, Neutro# 15.3H and PT/INR/APTT wnl; CBC abnormalities as w/ last admission and hematology consult has been recommended; CMP essentially WNL except sl. elevated BUN/Creat 22.8/1.24 likely d/t volume loss w/ vomiting, Total Bili 1.46 sl high w/ influence of alcohol use and dehydration/hepatic steotosis. Amylase and lipase WNL 70.4/Lipase 98.3. Urinalysis notes mild dehydration w/ recent alcohol use w/ 2+ protein unchanged from 01/03/2020 admission, Ketones neg, Ni trite +, Urine Bili 1+ down from previous 2+, and Urobilinogen improved 1.0H from 2.0H last admission. Patient had one bilous emesis in ER negative for occult blood. CT abd/pelvis w/ contrast notes no acute inflammatory process in the abdomen or pelvis; hepatic steatosis; Bilateral PE w/ RLL infarct as previously noted on Lung CT 01/04/2020. Patient was admitted for observation status re: Recurrent acute alcoholic gastritis. Patient was treated on medical unit w/ Phenergan IVP 25mg Q 6hrs X 2 doses, then phenergan was d/c'd and changed to Zofran 4mg IV prn w/ only one dose of Zofran given. IVF replenishment and clear liquid diet for 8 hrs and then increase as tolerated was effective for elimination for the remainder of the stay of any GI symptoms. Patient was also monitored for DT's w/ none noted. Labs improved to his normal upon discharge --see lab results. His total assessment was essentially normal. HEENT: Eyes-no redness, swelling or d/c. Ears: pinna w/o tenderness/pain. H earing--normal. Pharynx: w/o injection, cobblestoning, lesions or PND. No dysphagia. Neck: Supple; NT; No lymphadenopathy Lungs: CTA. No rales, rhonchi, crackles, or wheezing. No cough on exam. No retractions. Respirations easy and regular. RA O2 sat 99%. CVS: RRR; S1, S2; no murmur or gallop; No edema. No cyanosis; NBB Abdomen: Soft, NT, no rebound tenderness or guarding, no organomegaly or masses. HENNA/SO present. Extremities: BLANCHARD well w/ symmetry. Good strength all extremities. Neurological: A/O X4. Cooperative and pleasant. Good eye contact. Up and about in room w/o assistance; steady. Normal gait. Speech clear. No other abnormalities noted. Skin: Dry & intact. No rashes or lesions noted. Plan: Acute Alcoholic Gastritis w/ N/V and Hepatic Steatosis-- Improved but guarded as needs GI evaluation and to stop ETOH, MJ, & Tobacco use. Patient agrees and is seeking help for rehab; Omeprazole 40mg PO Q day #30; Zofran 4mg po Q6 hrs prn N/V per home meds--start at first sign of nausea; Diet as tolerated; NO ETOH or MJ; Keep f-u appt. w/ Dr. Conley for further management and GI referral. HTN--improved w/ home meds. Poor readings around discharged as patient was impatient and not happy w/ "slow" discharge time; Continue home meds; Heart healthy diet. Alcohol Abuse--chronic problem w/ intermittent drinking--1 pint whiskey last Wednesday01/14/2020; NO ETOH on discharge; family supportive and do not drink or buy him his alcohol; see Acute Alcoholic Gastritis POC Tobacco Dependence w/ counseling--improved from last admission; Counseling w/ patient who is A/OX4; patient on Chantix and nicotine patches at home and has agreed to d/c patch due to contraindications w/ Chantix. Praised and encouraged to continue using Chantix for tobacco cessation. Bilateral P.E. w/ RLL infarct--unchanged w/ Eliquis Rx cont'd on discharge; f-u w/ Dr. Conley for management. Cannabis dependence, daily use--improved w/ use 3-4 times/week instead of daily; needs to stop completely and should be part of his ETOH rehab. Patient counseled and agrees. Diverticulosis--stable; no inflammation noted per CT scan. Insomnia--chronic and unimproved w/ dependence on Seroquel; con't home med.
== END 2020-01-19 10:30 | disposition home or self-care (01) ==
LOC: MEDSURG B 08:59 → ED 08:59 → MEDSURG B 12:27
PROVIDERS: ADMIT Nurse Practitioner Family; ATTEND Nurse Practitioner Family
DX: K57.90 Diverticulosis of intestine, part unspecified, without perforation or abscess without bleeding; R11.14 Bilious vomiting; I10 Essential (primary) hypertension; K76.0 Fatty (change of) liver, not elsewhere classified; K29.20 Alcoholic gastritis without bleeding; Z79.01 Long term (current) use of anticoagulants; Z79.899 Other long term (current) drug therapy; R53.1 Weakness; R10.30 Lower abdominal pain, unspecified; I26.99 Other pulmonary embolism without acute cor pulmonale; F17.200 Nicotine dependence, unspecified, uncomplicated; G47.00 Insomnia, unspecified; Z71.6 Tobacco abuse counseling; F12.90 Cannabis use, unspecified, uncomplicated; F10.10 Alcohol abuse, uncomplicated